=== PATIENT | female | born 1935 | race Caucasian/White ===

== ENCOUNTER 2018-09-14 19:28 | Emergency (ER) | payer MEDICARE, OTHER ==
[~2018-09-14] VITALS: Ht 165.1 cm; Wt 77.1 kg
--- OUTSIDE RECORDS SUMMARY | 2018-09-14 19:31 | XMS REPORT ---
Author [facility] Address Unknown Phone Unavailable Care Team Providers Care Thermal Intelligence Analyst Name Role Phone Unavailable Unavailable Payers Payer Name Policy Type Policy Number Effective Date Expiration Date Problems This patient has no known problems. Allergies, Adverse Reactions, Alerts Allergy Name Allergy Type Status Severity Reaction(s) Onset Date Inactive Date Treating Clinician Comments No Known Allergies DA Active U 2015-08-04 00:00:00 Medications This patient has no known medications. Results Test Description Test Time Test Comments Text Results Atomic Results Result Comments COMPREHENSIVE METABOLIC PANEL 2018-08-08 09:40:00 SODIUM (test code=NA) 134 mmol/L 136-145 POTASSIUM (test code=K) 3.8 mmol/L 3.5-5.1 CHLORIDE (test code=CL) 103.0 mmol/L 98-107 CARBON DIOXIDE (test code=CO2) 21.0 mmol/L 21-32 ANION GAP (test code=GAP) 13.8 10-20 GLUCOSE (test code=GLU) 102 mg/dL 74-106 BLOOD UREA NITROGEN (test code=BUN) 12 mg/dL 7-18 GLOMERULAR FILTRATION RATE (test code=GFR) 60 mL/min >=60 Estimated GFR by using Modified MDRD formula.Chronic kidney disease is defined as either kidney damageor GFR <60 mL/min/1.73 m2 for >3 months. CREATININE (test code=CREAT) 0.90 mg/dL 0.55-1.02 Note change in reference range due to change in reagent. BUN/CREATININE RATIO (test code=BUN/CREA) 13.3 10-20 TOTAL PROTEIN (test code=PROT) 7.5 gram/dL 6.4-8.2 ALBUMIN (test code=ALB) 3.9 g/dL 3.4-5.0 GLOBULIN (test code=GLOB) 3.6 gram/dL 2.7-4.2 ALBUMIN/GLOBULIN RATIO (test code=A/G) 1.1 0.75-1.50 CALCIUM (test code=CA) 9.5 mg/dL 8.5-10.1 BILIRUBIN TOTAL (test code=BILT) 1.30 mg/dL 0.0-1.0 SGOT/AST (test code=AST) 32 IUnit/L 15-37 SGPT/ALT (test code=ALT) 25 IUnit/L 12-78 ALKALINE PHOSPHATASE TOTAL (test code=ALKP) 60 IUnit/L 45-117 Note change in reference range due to change in reagent. [id number] 09:40:00* Test Item Value Reference Range Comments MAGNESIUM (test code=MAG) 1.9 mg/dL 1.8-2.4 COMPREHENSIVE METABOLIC [id number] 09:36:00* Test Item Value Reference Range Comments SODIUM (test code=NA) 134 mmol/L 136-145 POTASSIUM (test code=K) 3.8 mmol/L 3.5-5.1 CHLORIDE (test code=CL) 103.0 mmol/L 98-107 CARBON DIOXIDE (test code=CO2) mmol/L 21-32 ANION GAP (test code=GAP) 10-20 GLUCOSE (test code=GLU) mg/dL 74-106 BLOOD UREA NITROGEN (test code=BUN) mg/dL 7-18 GLOMERULAR FILTRATION RATE (test code=GFR) mL/min >=60 CREATININE (test code=CREAT) mg/dL 0.55-1.02 BUN/CREATININE RATIO (test code=BUN/CREA) 10-20 TOTAL PROTEIN (test code=PROT) gram/dL 6.4-8.2 ALBUMIN (test code=ALB) g/dL 3.4-5.0 GLOBULIN (test code=GLOB) gram/dL 2.7-4.2 ALBUMIN/GLOBULIN RATIO (test code=A/G) 0.75-1.50 CALCIUM (test code=CA) mg/dL 8.5-10.1 BILIRUBIN TOTAL (test code=BILT) mg/dL 0.0-1.0 SGOT/AST (test code=AST) IUnit/L 15-37 SGPT/ALT (test code=ALT) IUnit/L 12-78 ALKALINE PHOSPHATASE TOTAL (test code=ALKP) IUnit/L 45-117 [id number] 09:36:00* Test Item Value Reference Range Comments MAGNESIUM (test code=MAG) mg/dL 1.8-2.4 CBC W/AUTO [id number] 09:09:00* Test Item Value Reference Range Comments WHITE BLOOD CELL (test code=WBC) K/mm3 4.5-12.5 RED BLOOD CELL (test code=RBC) mill/mm3 3.7-5.2 HEMOGLOBIN (test code=HGB) 13.3 gram/dL 11.5-15.5 HEMATOCRIT (test code=HCT) 41.7 % 36.0-46.0 MEAN CELL VOLUME (test code=MCV) fL 80-98 MEAN CELL HGB (test code=MCH) picogram 27.0-33.0 MEAN CELL HGB CONCETRATION (test code=MCHC) gram/dL 33.0-36.0 RED CELL DISTRIBUTION WIDTH (test code=RDW) % 11.6-16.2 RED CELL DISTRIBUTION WIDTH SD (test code=RDW-SD) fL 37.0-51.0 PLATELET COUNT (test code=PLT) K/mm3 150-450 MEAN PLATELET VOLUME (test code=MPV) fL 6.7-11.0 NEUTROPHIL % (test code=NT%) % 39.0-69.0 IMMATURE GRANULOCYTE % (test code=IG%) % 0.0-5.0 LYMPHOCYTE % (test code=LY%) % 25.0-55.0 MONOCYTE % (test code=MO%) % 0.0-10.0 EOSINOPHIL % (test code=EO%) % 0.0-5.0 BASOPHIL % (test code=BA%) % 0.0-1.0 NEUTROPHIL # (test code=NT#) K/mm3 1.8-7.7 LYMPHOCYTE # (test code=LY#) K/mm3 1.0-5.0 MONOCYTE # (test code=MO#) K/mm3 0-0.8 EOSINOPHIL # (test code=EO#) K/mm3 0.0-0.5 BASOPHIL # (test code=BA#) K/mm3 0.0-0.2 CBC W/AUTO [id number] 09:09:00* Test Item Value Reference Range Comments WHITE BLOOD CELL (test code=WBC) 6.9 K/mm3 4.5-12.5 RED BLOOD CELL (test code=RBC) 4.09 mill/mm3 3.7-5.2 HEMOGLOBIN (test code=HGB) 13.3 gram/dL 11.5-15.5 HEMATOCRIT (test code=HCT) 41.7 % 36.0-46.0 MEAN CELL VOLUME (test code=MCV) 102.0 fL 80-98 MEAN CELL HGB (test code=MCH) 32.5 picogram 27.0-33.0 MEAN CELL HGB CONCETRATION (test code=MCHC) 31.9 gram/dL 33.0-36.0 RED CELL DISTRIBUTION WIDTH (test code=RDW) 14.1 % 11.6-16.2 RED CELL DISTRIBUTION WIDTH SD (test code=RDW-SD) 53.1 fL 37.0-51.0 PLATELET COUNT (test code=PLT) 300 K/mm3 150-450 MEAN PLATELET VOLUME (test code=MPV) 9.2 fL 6.7-11.0 NEUTROPHIL % (test code=NT%) 69.6 % 39.0-69.0 IMMATURE GRANULOCYTE % (test code=IG%) 0.4 % 0.0-5.0 LYMPHOCYTE % (test code=LY%) 16.1 % 25.0-55.0 MONOCYTE % (test code=MO%) 11.7 % 0.0-10.0 EOSINOPHIL % (test code=EO%) 1.3 % 0.0-5.0 BASOPHIL % (test code=BA%) 0.9 % 0.0-1.0 NUCLEATED RBC % (test code=NRBC%) 0.0 % 0-0 NEUTROPHIL # (test code=NT#) 4.81 K/mm3 1.8-7.7 IMMATURE GRANULOCYTE # (test code=IG#) 0.03 x10 3/uL 0-0.03 LYMPHOCYTE # (test code=LY#) 1.11 K/mm3 1.0-5.0 MONOCYTE # (test code=MO#) 0.81 K/mm3 0-0.8 EOSINOPHIL # (test code=EO#) 0.09 K/mm3 0.0-0.5 BASOPHIL # (test code=BA#) 0.06 K/mm3 0.0-0.2 NUCLEATED RBC # (test code=NRBC#) 0.00 K/mm3 0.0-0.1 MANUAL DIFF REQUIRED (test code=MDIFF) NO [id number] 08:59:00* Test Item Value Reference Range Comments TROPONIN-I (test code=TROPI) <0.015 ng/mL 0-0.045 COMMENTS TO DETECTIVE PRECINCT: COLLECT 3 HOURS AFTER PREVIOUS [id number] 04:49:00* Test Item Value Reference Range Comments TROPONIN-I (test code=TROPI) <0.015 ng/mL 0-0.045 COMMENTS TO DETECTIVE PRECINCT: COLLECT 3 HOURS AFTER PREVIOUS SAMPLEURINALYSIS [id number] 21:34:00* Test Item Value Reference Range Comments UA COLOR (test code=COLU) LIGHT YELLOW YELLOW UA APPEARANCE (test code=APPU) CLEAR CLEAR UA GLUCOSE DIPSTICK (test code=DGLUU) NEGATIVE mg/dL NEGATIVE UA BILIRUBIN DIPSTICK (test code=BILU) NEGATIVE mg/dL NEGATIVE UA KETONE DIPSTICK (test code=KETU) Negative mg/dL NEGATIVE UA SPECIFIC GRAVITY (test code=SGU) 1.011 1.001-1.035 UA BLOOD DIPSTICK (test code=RENEE) 2+ (Moderate) NEGATIVE UA PH DIPSTICK (test code=SHANTEL) 5.0 5.0-8.0 UA PROTEIN DIPSTICK (test code=PROU) Negative mg/dL NEGATIVE UA UROBILINIOGEN DIPSTICK (test code=URO) NEGATIVE mg/dL NEGATIVE UA NITRITE DIPSTICK (test code=MAAME) NEGATIVE NEGATIVE UA LEUKOCYTE ESTERASE W REFLEX (test code=LEUUR) NEGATIVE NEGATIVE UA WBC (test code=WBCU) 0-5 #/HPF 0-5 UA RBC (test code=RBCU) 0-2 #/HPF 0-5 UA EPITHELIAL CELLS (test code=EPIU) FEW per HPF FEW UA BACTERIA (test code=BACU) FEW #/HPF NONE UA MUCUS (test code=MUCU) FEW #/LPF FEW Urine Source? Clean CatchBASIC METABOLIC [id number] 20:46:00* Test Item Value Reference Range Comments SODIUM (test code=NA) 130 mmol/L 136-145 POTASSIUM (test code=K) 4.5 mmol/L 3.5-5.1 CHLORIDE (test code=CL) 99.0 mmol/L 98-107 CARBON DIOXIDE (test code=CO2) 19.0 mmol/L 21-32 ANION GAP (test code=GAP) 16.5 10-20 GLUCOSE (test code=GLU) 102 mg/dL 74-106 BLOOD UREA NITROGEN (test code=BUN) 29 mg/dL 7-18 GLOMERULAR FILTRATION RATE (test code=GFR) 43 mL/min >=60 Estimated GFR by using Modified MDRD formula.Chronic kidney disease is defined as either kidney damageor GFR <60 mL/min/1.73 m2 for >3 months. CREATININE (test code=CREAT) 1.20 mg/dL 0.55-1.02 Note change in reference range due to change in reagent. BUN/CREATININE RATIO (test code=BUN/CREA) 23.6 10-20 CALCIUM (test code=CA) 9.7 mg/dL 8.5-10.1 HEPATIC FUNCTION [id number] 20:46:00* Test Item Value Reference Range Comments TOTAL PROTEIN (test code=PROT) 7.4 gram/dL 6.4-8.2 ALBUMIN (test code=ALB) 3.7 g/dL 3.4-5.0 GLOBULIN (test code=GLOB) 3.7 gram/dL 2.7-4.2 ALBUMIN/GLOBULIN RATIO (test code=A/G) 1.0 0.75-1.50 BILIRUBIN TOTAL (test code=BILT) 0.80 mg/dL 0.0-1.0 BILIRUBIN DIRECT (test code=BILD) 0.19 mg/dL 0.0-0.20 SGOT/AST (test code=AST) 26 IUnit/L 15-37 SGPT/ALT (test code=ALT) 24 IUnit/L 12-78 ALKALINE PHOSPHATASE TOTAL (test code=ALKP) 59 IUnit/L 45-117 Note change in reference range due to change in reagent. [id number] 20:46:00* Test Item Value Reference Range Comments TROPONIN-I (test code=TROPI) <0.015 ng/mL 0-0.045 BASIC METABOLIC [id number] 20:37:00* Test Item Value Reference Range Comments SODIUM (test code=NA) 130 mmol/L 136-145 POTASSIUM (test code=K) 4.5 mmol/L 3.5-5.1 CHLORIDE (test code=CL) 99.0 mmol/L 98-107 CARBON DIOXIDE (test code=CO2) mmol/L 21-32 ANION GAP (test code=GAP) 10-20 GLUCOSE (test code=GLU) mg/dL 74-106 BLOOD UREA NITROGEN (test code=BUN) mg/dL 7-18 GLOMERULAR FILTRATION RATE (test code=GFR) mL/min >=60 CREATININE (test code=CREAT) mg/dL 0.55-1.02 BUN/CREATININE RATIO (test code=BUN/CREA) 10-20 CALCIUM (test code=CA) mg/dL 8.5-10.1 HEPATIC FUNCTION [id number] 20:37:00* Test Item Value Reference Range Comments TOTAL PROTEIN (test code=PROT) gram/dL 6.4-8.2 ALBUMIN (test code=ALB) g/dL 3.4-5.0 GLOBULIN (test code=GLOB) gram/dL 2.7-4.2 ALBUMIN/GLOBULIN RATIO (test code=A/G) 0.75-1.50 BILIRUBIN TOTAL (test code=BILT) mg/dL 0.0-1.0 BILIRUBIN DIRECT (test code=BILD) mg/dL 0.0-0.20 SGOT/AST (test code=AST) IUnit/L 15-37 SGPT/ALT (test code=ALT) IUnit/L 12-78 ALKALINE PHOSPHATASE TOTAL (test code=ALKP) IUnit/L 45-117 [id number] 20:37:00* Test Item Value Reference Range Comments TROPONIN-I (test code=TROPI) ng/mL 0-0.045 CBC W/AUTO [id number] 20:30:00* Test Item Value Reference Range Comments WHITE BLOOD CELL (test code=WBC) 5.7 K/mm3 4.5-12.5 RED BLOOD CELL (test code=RBC) 4.16 mill/mm3 3.7-5.2 HEMOGLOBIN (test code=HGB) 13.7 gram/dL 11.5-15.5 HEMATOCRIT (test code=HCT) 41.7 % 36.0-46.0 MEAN CELL VOLUME (test code=MCV) 100.2 fL 80-98 MEAN CELL HGB (test code=MCH) 32.9 picogram 27.0-33.0 MEAN CELL HGB CONCETRATION (test code=MCHC) 32.9 gram/dL 33.0-36.0 RED CELL DISTRIBUTION WIDTH (test code=RDW) 13.8 % 11.6-16.2 RED CELL DISTRIBUTION WIDTH SD (test code=RDW-SD) 51.5 fL 37.0-51.0 PLATELET COUNT (test code=PLT) 307 K/mm3 150-450 MEAN PLATELET VOLUME (test code=MPV) 8.8 fL 6.7-11.0 NEUTROPHIL % (test code=NT%) 65.1 % 39.0-69.0 IMMATURE GRANULOCYTE % (test code=IG%) 0.9 % 0.0-5.0 LYMPHOCYTE % (test code=LY%) 18.2 % 25.0-55.0 MONOCYTE % (test code=MO%) 12.8 % 0.0-10.0 EOSINOPHIL % (test code=EO%) 1.9 % 0.0-5.0 BASOPHIL % (test code=BA%) 1.1 % 0.0-1.0 NUCLEATED RBC % (test code=NRBC%) 0.0 % 0-0 NEUTROPHIL # (test code=NT#) 3.71 K/mm3 1.8-7.7 IMMATURE GRANULOCYTE # (test code=IG#) 0.05 x10 3/uL 0-0.03 LYMPHOCYTE # (test code=LY#) 1.04 K/mm3 1.0-5.0 MONOCYTE # (test code=MO#) 0.73 K/mm3 0-0.8 EOSINOPHIL # (test code=EO#) 0.11 K/mm3 0.0-0.5 BASOPHIL # (test code=BA#) 0.06 K/mm3 0.0-0.2 NUCLEATED RBC # (test code=NRBC#) 0.00 K/mm3 0.0-0.1 MANUAL DIFF REQUIRED (test code=MDIFF) NO - CT HEAD/BRAIN W/O [id number] 20:30:00 Name: CLARISA CHAIDEZ [facility] : 1935 Age/S: 83 / F Miriam Tabor Unit #: [id number] Loc: [place] [address] Phys: Yonny Hale MD Acct: [id number] Dis Date: Status: REG ER PHONE #: [phone] Exam Date: 08/06/20182025 FAX #: [phone] Reason: Altered Mental Status EXAMS: CPT CODE: [id number] CT HEAD/BRAIN W/O CONT 70068 REASON FOR EXAM: Altered Mental Status EXAM ORDER DATE: 08/06/2018 7:44 PM Ordering MKeara: Yonny Hale MD PROCEDURE: - CT HEAD/BRAIN W/O CONT COMPARISON: FINDINGS: CT images of the brain were obtained without IV contrast. Dose modulation, iterative reconstruction, and/or weight based adjustment of the MA/KV was utilized to reduce the radiation dose to as low as reasonably achievable. The brain parenchyma is within normal limits. The adair-white matter delineation is unremarkable. The ventricles, cisterns, and sulci are minimally prominent. There is no evidence of hemorrhage, mass, mass effect. There is no evidence of acute or old infarct. The calvarium is intact. IMPRESSION: Unremarkable brain. at 2030 Reported and signed by: Mason New M.D. CC: Yonny Hale MD; Burke Grover MD Technologist:Eligio Spears, RT(R)(CT); September CTDI: DLP: Trnscb Date/Time: 08/06/2018 (2029) Forrest Orig Print D/T: S: 08/06/2018 (2033) CTDI: DLP: PAGE 1 Signed Report CBC W/AUTO [id number] 20:27:00 * Test Item Value Reference Range Comments WHITE BLOOD CELL (test code=WBC) K/mm3 4.5-12.5 RED BLOOD CELL (test code=RBC) mill/mm3 3.7-5.2 HEMOGLOBIN (test code=HGB) 13.7 gram/dL 11.5-15.5 HEMATOCRIT (test code=HCT) 41.7 % 36.0-46.0 MEAN CELL VOLUME (test code=MCV) fL 80-98 MEAN CELL HGB (test code=MCH) picogram 27.0-33.0 MEAN CELL HGB CONCETRATION (test code=MCHC) gram/dL 33.0-36.0 RED CELL DISTRIBUTION WIDTH (test code=RDW) % 11.6-16.2 RED CELL DISTRIBUTION WIDTH SD (test code=RDW-SD) fL 37.0-51.0 PLATELET COUNT (test code=PLT) K/mm3 150-450 MEAN PLATELET VOLUME (test code=MPV) fL 6.7-11.0 NEUTROPHIL % (test code=NT%) % 39.0-69.0 IMMATURE GRANULOCYTE % (test code=IG%) % 0.0-5.0 LYMPHOCYTE % (test code=LY%) % 25.0-55.0 MONOCYTE % (test code=MO%) % 0.0-10.0 EOSINOPHIL % (test code=EO%) % 0.0-5.0 BASOPHIL % (test code=BA%) % 0.0-1.0 NEUTROPHIL # (test code=NT#) K/mm3 1.8-7.7 LYMPHOCYTE # (test code=LY#) K/mm3 1.0-5.0 MONOCYTE # (test code=MO#) K/mm3 0-0.8 EOSINOPHIL # (test code=EO#) K/mm3 0.0-0.5 BASOPHIL # (test code=BA#) K/mm3 0.0-0.2 - XR CHEST 1 [id number] 20:14:00 FAX: Yonny Hale MD [phone] [place]: B St: [facility] FAX: Burke Gallardo [phone] Name: CLARISA CHAIDEZ [facility] : 1935 Age/S: 83/F Miriam Tabor Unit #: [id number] Loc: [place] [address] Phys: Yonny Hale MD Acct: [id number] Dis Date: Status: REG ER PHONE #: [phone] Exam Date: 08/06/2018 1950 FAX #: [phone] Reason: Altered Mental Status EXAMS: CPT CODE: [id number] XR CHEST 1 V [id number] REASON FOR EXAM: Altered Mental Status EXAM ORDER DATE: 08/06/2018 7:44 PM Ordering Eduarda: Yonny Hale MD PROCEDURE: - XR CHEST 1 V COMPARISON: FINDINGS: Portable AP frontal view of the chest obtained at 7:49 PM shows clear lungs without evidence of consolidation. There is no evidence of effusion. The heart size is minimally enlarged. Pulmonary vasculatures are unremarkable. IMPRESSION: No active disease. at 2014 Reported and signed by: Mason New M.D. CC: Yonny Hale MD; Burke Grover MD Technologist: BASILIO THOMAS(R) Trnscrd Date/Time/By: 08/06/2018 (2013) : By: KvngL Orig Print D/T: S: 08/06/2018 (2016) PAGE 1 Signed Report
[2018-09-14 20:49] LABS: BASOPHILS % 0.9 % (0.0-1.0); EOSINOPHILS # (AUTO) 0.2 (0.0-0.4); EOSINOPHILS % 5.5 % (0.0-6.0); HEMATOCRIT 37.1 % (34.2-44.1); HEMOGLOBIN 12.2 g/dL (12.0-16.0); LYMPHOCYTES # (AUTO) 0.8 (1.0-3.2); LYMPHOCYTES % 18.3 % (18.0-39.1); MEAN CORPUSCULAR HGB CONC 32.9 g/dL (31-35); MEAN CORPUSCULAR VOLUME 100.3 fL (81-99); MONOCYTES # (AUTO) 0.6 (0.2-0.8); MONOCYTES % 13.9 % (4.4-11.3); NEUTROPHILS # (AUTO) 2.7 (2.1-6.9); NEUTROPHILS % 61.2 % (38.7-80.0); PLATELET COUNT 277 x10e3/uL (140-360); RED CELL DISTRIBUTION WIDTH 13.4 % (11.7-14.4)
[2018-09-14] MEDS ORDERED: ULTRAM 50MG50 MG PO (21:00)
[2018-09-14] MEDS ORDERED: KLOR-CON M2020 MEQ PO (21:00)
[2018-09-14] MEDS ORDERED: NORTRIPTYLINE H10 MG PO (21:00)
[2018-09-14] MEDS ORDERED: METOPROLOL SUCC50 MG PO (21:00)
[2018-09-14] MEDS ORDERED: DICLOFENAC SODI75 MG PO (21:00)
[2018-09-14] MEDS ORDERED: MAG-OXIDE400 MG PO (21:00)
[2018-09-14] MEDS ORDERED: SPIRONOLACTONE100 MG PO (21:00)
[2018-09-14] MEDS ORDERED: HYDROCODON-ACE1 EAC9 PO (21:00)
[2018-09-14 21:03] LABS: ALBUMIN 3.5 g/dL (3.5-5.0); ANION GAP 14.9 mmol/L (8-16); CREATININE, SERUM 1.45 mg/dL (0.57-1.11); MAGNESIUM 2.4 MG/DL (1.3-2.1); POTASSIUM 5.9 mmol/L (3.5-5.1)
[2018-09-14] MEDS ORDERED: DEXTROSE 50% SYRINGE 50 ML IV STA (21:17)
[2018-09-14] MEDS ORDERED: INSULIN REGULAR, HUMAN 100 UNIT/1 ML 3ML VIAL IV ONE (21:30)
[2018-09-14] MEDS ORDERED: SOD POLYSTYRENE SULFONATE SUSP 15 GM/60 ML BTL PO ONE (21:30)
[2018-09-14] MEDS ORDERED: CALCIUM GLUCONATE 10% INJ 4.65 MEQ in SODIUM CHLORIDE 0.9% 50ML 50 ML IV ONE (21:30)
[2018-09-14] MEDS ORDERED: SODIUM CHLORIDE 0.9% 1000ML 1,000 ML IV SCH (21:30)
[2018-09-15 00:39] LABS: ANION GAP 13.4 mmol/L (8-16); CALCIUM 9.8 mg/dL (8.4-10.2)
[2018-09-15 01:01] LABS: POTASSIUM 4.4 mmol/L (3.5-5.1)
[2018-09-15 01:32] LABS: CREATININE, SERUM 1.22 mg/dL (0.57-1.11)
[2018-09-15 03:06] VITALS: BP 129/68
== END 2018-09-15 01:30 | disposition home or self-care (01) ==
LOC: ER 19:28
DX: E87.5 Hyperkalemia (principal)
CPT/HCPCS: 36415; 80048; 80053; 83735; 85025; 93005; 99284; J0610; J1817; J7030; J7799

== ENCOUNTER 2019-07-17 06:31 | Inpatient (IN) | payer MEDICARE, OTHER ==
[~2019-07-17] VITALS: Ht 165.1 cm; Wt 89.9 kg
[~2019-07-17 06:31] MED LIST: DICLOFENAC SODI75 MG PO; HYDROCODON-ACE1 EAC9 PO; KLOR-CON M2020 MEQ PO; MAG-OXIDE400 MG PO; METOPROLOL SUCC50 MG PO; NORTRIPTYLINE H10 MG PO; SPIRONOLACTONE100 MG PO; ULTRAM 50MG50 MG PO
[2019-07-17] MEDS ORDERED: SODIUM CHLORIDE 0.9% 1000ML 1,000 ML IV STA (06:43)
[2019-07-17] MEDS ORDERED: DIATRIZOATE MEGL/DIATRIZOA SOD 30 ML BTL PO ONE (07:00)
[2019-07-17 07:59] LABS: BASOPHILS % 0.3 % (0.0-1.0); EOSINOPHILS % 0.1 % (0.0-6.0); HEMATOCRIT 40.6 % (34.2-44.1); HEMOGLOBIN 13.8 g/dL (12.0-16.0); LYMPHOCYTES # (AUTO) 0.9 (1.0-3.2); LYMPHOCYTES % 6.8 % (18.0-39.1); MEAN CORPUSCULAR HEMOGLOBIN 32.2 pg (28-32); MEAN CORPUSCULAR VOLUME 94.9 fL (81-99); MONOCYTES # (AUTO) 1.2 (0.2-0.8); MONOCYTES % 9.9 % (4.4-11.3); NEUTROPHILS # (AUTO) 10.3 (2.1-6.9); NEUTROPHILS % 82.1 % (38.7-80.0); PLATELET COUNT 227 x10e3/uL (140-360); RED BLOOD COUNT 4.28 x10e6/uL (3.6-5.1); RED CELL DISTRIBUTION WIDTH 13.2 % (11.7-14.4)
[2019-07-17 08:20] LABS: ALANINE AMINOTRANSFERASE 8 IU/L (0-55); ALBUMIN 2.9 g/dL (3.5-5.0); ALBUMIN/GLOBULIN RATIO 0.7 (0.8-2.0); ALKALINE PHOSPHATASE 96 IU/L (40-150); ANION GAP 17.9 mmol/L (8-16); BLOOD UREA NITROGEN 9 mg/dL (7-26); BUN/CREATININE RATIO 12 (6-25); CALCIUM 8.7 mg/dL (8.4-10.2); CARBON DIOXIDE 24 mmol/L (22-29); CHLORIDE 90 mmol/L (98-107); CREATINE KINASE 34 IU/L (29-168); CREATININE, SERUM 0.74 mg/dL (0.57-1.11); EST GLOMERULAR FILTRATION RATE > 60 ML/MIN (60-); GLUCOSE 94 mg/dL (74-118); LIPASE 62 U/L (8-78); SODIUM 129 mmol/L (136-145)
[2019-07-17 08:29] LABS: POTASSIUM 2.9 mmol/L (3.5-5.1)
[2019-07-17] MEDS ORDERED: POTASSIUM CHLORIDE 10MEQ/100ML 100 ML IV ONE (09:00)
[2019-07-17] MEDS: POTASSIUM CHLORIDE 10MEQ EA PO SCH (09:50)
--- NOTE | 2019-07-17 10:15 | Diagnostic Imaging Report ---
EXAMINATION: CT of the abdomen and pelvis with contrast. TECHNIQUE: Spiral CT images of the abdomen and pelvis were performed from the lung bases to the lesser trochanters after the intravenous administration of 100 cc of Isovue 370. Coronal and sagittal reformatted images were obtained. COMPARISON: None. CLINICAL HISTORY:Diarrhea x2 weeks, abdominal distention DISCUSSION: ABDOMEN/PELVIS: LOWER THORAX:Subsegmental atelectasis in the dependent lower lobes. HEPATOBILIARY: No focal hepatic lesions. Trace intrahepatic biliary ductal dilatation status post cholecystectomy. Common bile duct is mildly prominent measuring 9 mm in diameter. SPLEEN: Calcified granulomata. PANCREAS: No focal masses or ductal dilatation. ADRENALS: No adrenal nodules. KIDNEYS/URETERS: No hydronephrosis, calculi, or solid or cystic mass lesions. PELVIC ORGANS/BLADDER: Urinary bladder is unremarkable. Uterus is neutral in position and appears normal for age. No adnexal mass. PERITONEUM/RETROPERITONEUM: No ascites or pneumoperitoneum. LYMPH NODES: No pelvic sidewall, retroperitoneal, or mesenteric lymphadenopathy. Calcified right lower quadrant mesenteric lymph nodes, sequela of prior infectious or inflammatory process. VESSELS: Atherosclerotic calcification of the abdominal aorta, branch vessels, and iliac arterial systems without aneurysmal dilatation. Portal vein, splenic vein, and central superior mesenteric vein are patent. GI TRACT: The large bowel shows no evidence of distention or wall thickening. The appendix is not definitively identified and may have been removed. Small hiatal hernia. No small bowel dilatation to suggest obstruction. BONES AND SOFT TISSUE: Diffuse osteopenia. Vertebroplasty cement within the T11 vertebral body. No osseous destructive lesions. No focal soft tissue abnormalities. IMPRESSION: No acute intra-abdominal or pelvic CT abnormalities. Trace intrahepatic and extrahepatic biliary ductal dilatation, likely reservoir effect status post cholecystectomy. Atherosclerotic vascular disease. Signed by: Dr. Thang Cardoza M.D. on 07/17/2019 10:12 AM
--- NOTE | 2019-07-17 11:06 | Diagnostic Imaging Report ---
Examination: CT head without contrast Clinical Indication: Severe headache. Technique: Transaxial noncontrast images from the skull base through the vertex were obtained. Sagittal and coronal reformatted images were done. Dose modulation, iterative reconstruction, and/or weight based adjustment of the mA/kV was utilized to reduce the radiation dose to as low as reasonably achievable. Comparison: None. Findings: Scalp: No abnormalities. Bones: Intact. No fractures. No blastic or lytic lesions. Brain sulci: Mild volume loss for patient's age. Ventricles: No hydrocephalus. Extra-axial space: No abnormalities. Parenchyma: There are confluent areas of low-attenuation within subcortical and periventricular white matter, nonspecific, but could represent microvascular ischemic disease. No masses, hemorrhage, or acute or chronic cortical based vascular insults. Suprasellar region: No abnormalities. Craniocervical junction: The foramen magnum is patent. No Chiari one malformation. Incidental findings: Atherosclerotic calcification of the cavernous and supraclinoid internal carotid and V4 segments of the bilateral vertebral arteries. Impression: 1. No acute intracranial finding. 2. Chronic microvascular ischemic change and volume loss. Signed by: Dr. Marie Phillips M.D. on 07/17/2019 11:03 AM
--- NOTE | 2019-07-17 11:21 | Diagnostic Imaging Report ---
Examination: CT CERVICAL SPINE WO CONTRAST HISTORY:Neck pain COMPARISON:None. TECHNIQUE: Multidetector helical axial images were obtained without contrast from the foramen magnum to T1. Coronal and sagittal reformatted images were done. Bone and soft tissue windows were evaluated. Dose modulation, iterative reconstruction, and/or weight based adjustment of the mA/kV was utilized to reduce the radiation dose to as low as reasonably achievable. FINDINGS: Alignment:Normal alignment and lordosis. Vertebrae: Normal height and density. No acute fracture, infection or neoplasm. Disc space heights: Severely narrowed from C2 to through C7. Caliber of spinal canal: Developmentally normal. Posterior fossa and craniocervical junction: Foramen magnum patent. No Chiari 1 malformation. Soft tissues: Atherosclerotic calcification of the bilateral carotid bifurcations and aortic arch. Degenerative changes: Disc osteophyte complexes from C3-C4 through C6-C7 without canal stenosis. Grade I anterolisthesis of C2 on C3 and C3 on C4. Mild retrolisthesis of C6 on C7. Retrodental partially calcified soft tissue without erosive change of the underlying dense which could be related to CPPD or rheumatoid arthritis. Bilateral facet arthropathy from C2 through C6. Visualized lung apices: No abnormalities. IMPRESSION: 1. No acute abnormalities, specifically, no acute fracture. 2. Degenerative changes as above. Grade I anterolisthesis of C2 on C3 and C3 on C4. Mild retrolisthesis of C6 on C7. Signed by: Dr. Marie Phillips M.D. on 07/17/2019 11:19 AM
[2019-07-17] MEDS ORDERED: ONDANSETRON HCL INJ 2MG/ML 2ML 2 MG/ML VIAL IV PRN (12:15)
[2019-07-17] MEDS ORDERED: IOPAMIDOL 370 MG/ML 200 ML INFUS..BTL INJ ONE (12:58)
[2019-07-17] MEDS ORDERED: SODIUM CHLORIDE 0.9% 50ML 50 ML ONE (12:58)
[2019-07-17] MEDS: CEFTRIAXONE SOD 1 GM/NS 50 ML 50 ML IV SCH ×2 (13:08→20:51)
[2019-07-17] MEDS: SODIUM CHLORIDE 0.9% 1000ML 1,000 ML IV SCH (13:08)
[2019-07-17] MEDS ORDERED: POTASSIUM CHLORIDE 20MEQ/100ML 100 ML IV ONE (13:45)
[2019-07-17 15:13] LABS: BILIRUBIN,URINE NEGATIVE (NEGATIVE); CLARITY,URINE SL CLOUDY (CLEAR); COLOR,URINE YELLOW (YELLOW); KETONES,URINE 2+ (NEGATIVE); LEUKOCYTE ESTERASE ,URINE NEGATIVE (NEGATIVE); NITRITE,URINE NEGATIVE (NEGATIVE); PROTEIN,URINE DIPSTICK 1+ (NEGATIVE); URINE UROBILINOGEN 0.2 mg/dL (0.2 - 1)
[2019-07-17 15:28] LABS: BACTERIA,URINE FEW /HPF; EPITHELIAL CELLS,URINE FEW /LPF; WBC,URINE (MAN) 0-5 /HPF (0-5)
[2019-07-17 15:48] VITALS: BP 168/96
[2019-07-17] MEDS: TRAMADOL HCL 50 MG TAB PO PRN (15:53)
[2019-07-17 16:00] VITALS: BP 168/96
[2019-07-17 16:08] VITALS: BP 168/96
[2019-07-17 17:41] LABS: CREATINE KINASE MB 0.8 ng/mL (0-5.0)
[2019-07-17 20:00] VITALS: BP 148/82
--- NOTE | 2019-07-17 20:11 | NUR ---
Paged Dr Aby Shirley regarding patient elevated HR and headache. Spoke with [facility]. Awaiting call back.
[2019-07-17 20:20] VITALS: BP 148/82
--- NOTE | 2019-07-17 20:31 | NUR ---
Spoke with Dr Aby Shirley regarding patient. HR 115 to 130'sbut not sustaining. Patient also c/o headache 02/22. Per report patient is heavy drinker, patient report drinking dale at home. New orders for tylenol 500 mg po Q 6 hrs PRN pain and start toprol xl tonight.
[2019-07-17] MEDS: ACETAMINOPHEN 325 MG TAB PO PRN (20:51)
[2019-07-17] MEDS ORDERED: METOPROLOL SUCCINATE 50 MG TAB XL PO SCH (21:00)
[2019-07-18] VITALS (8 sets, daily range): BP systolic 106–130; BP diastolic 57–89
[2019-07-18] MEDS ORDERED: BISACODYL 5 MG TAB EC PO ONE ×3 (00:30→01:00)
[2019-07-18] MEDS: SODIUM CHLORIDE 0.9% 1000ML 1,000 ML IV SCH ×2 (00:47→21:11)
[2019-07-18] MEDS: TRAMADOL HCL 50 MG TAB PO PRN ×2 (01:56→21:24)
[2019-07-18 02:22] LABS: ANION GAP 16.3 mmol/L (8-16); BLOOD UREA NITROGEN 7 mg/dL (7-26); BUN/CREATININE RATIO 11 (6-25); CALCIUM 8.8 mg/dL (8.4-10.2); CARBON DIOXIDE 24 mmol/L (22-29); CHLORIDE 95 mmol/L (98-107); CREATININE, SERUM 0.66 mg/dL (0.57-1.11); EST GLOMERULAR FILTRATION RATE > 60 ML/MIN (60-); GLUCOSE 90 mg/dL (74-118); SODIUM 133 mmol/L (136-145)
[2019-07-18 02:24] LABS: POTASSIUM 2.3 mmol/L (3.5-5.1)
--- NOTE | 2019-07-18 02:38 | NUR ---
Page out to Dr Aby Shirley, spoke with Carla with answering service. Awaiting call back.
[2019-07-18 02:41] LABS: CREATINE KINASE MB 0.9 ng/mL (0-5.0)
[2019-07-18] MEDS ORDERED: POTASSIUM CHLORIDE 20MEQ/100ML 100 ML IV ONE ×2 (02:45→05:00)
--- NOTE | 2019-07-18 02:45 | NUR ---
Return call from Dr Aby Shirley. Reported lab alert potassium 2.3. New order for kcl 20 mEq IVPB over 2 hrs x2 doses, recheck BMP and magnesium in am 0700.
[2019-07-18] MEDS ORDERED: CITRATE OF MAGNESIA 300ML BOTTLE PO ONE ×2 (05:00→06:00)
--- NOTE | 2019-07-18 07:01 | NUR ---
BEDSIDE SHIFT REPORT RECEIVED FROM VULCANIZED FIBER UNIT OPERATOR RN, PT RESTING IN BED. NO SIGNS OF DISTRESS. NO COMPLAINTS AT THIS TIME.
[2019-07-18 08:06] LABS: BASOPHILS # (AUTO) 0.1 (0.0-0.1); BASOPHILS % 0.4 % (0.0-1.0); HEMATOCRIT 43.5 % (34.2-44.1); HEMOGLOBIN 14.7 g/dL (12.0-16.0); LYMPHOCYTES # (AUTO) 0.6 (1.0-3.2); LYMPHOCYTES % 2.6 % (18.0-39.1); MEAN CORPUSCULAR HEMOGLOBIN 32.2 pg (28-32); MEAN CORPUSCULAR HGB CONC 33.8 g/dL (31-35); MEAN CORPUSCULAR VOLUME 95.2 fL (81-99); MONOCYTES # (AUTO) 1.3 (0.2-0.8); MONOCYTES % 5.9 % (4.4-11.3); NEUTROPHILS # (AUTO) 20.3 (2.1-6.9); NEUTROPHILS % 90.5 % (38.7-80.0); PLATELET COUNT 279 x10e3/uL (140-360); RED BLOOD COUNT 4.57 x10e6/uL (3.6-5.1); RED CELL DISTRIBUTION WIDTH 13.1 % (11.7-14.4)
[2019-07-18 08:29] LABS: ALANINE AMINOTRANSFERASE 12 IU/L (0-55); ALBUMIN 2.8 g/dL (3.5-5.0); ALBUMIN/GLOBULIN RATIO 0.7 (0.8-2.0); ALKALINE PHOSPHATASE 99 IU/L (40-150); ANION GAP 13.7 mmol/L (8-16); BLOOD UREA NITROGEN 7 mg/dL (7-26); BUN/CREATININE RATIO 11 (6-25); CALCIUM 9.2 mg/dL (8.4-10.2); CARBON DIOXIDE 19 mmol/L (22-29); CHLORIDE 101 mmol/L (98-107); CREATININE, SERUM 0.66 mg/dL (0.57-1.11); EST GLOMERULAR FILTRATION RATE > 60 ML/MIN (60-); GLUCOSE 102 mg/dL (74-118); SODIUM 131 mmol/L (136-145)
[2019-07-18 08:42] LABS: POTASSIUM 2.7 mmol/L (3.5-5.1)
[2019-07-18 08:51] LABS: CREATINE KINASE MB 1.8 ng/mL (0-5.0)
[2019-07-18] MEDS: CEFTRIAXONE SOD 1 GM/NS 50 ML 50 ML IV SCH (08:58)
[2019-07-18] MEDS: POTASSIUM CHLORIDE 10MEQ EA PO SCH (08:58)
[2019-07-18] MEDS: NORTRIPTYLINE HCL 10 MG CAP PO SCH (08:59)
[2019-07-18] MEDS ORDERED: METOPROLOL SUCCINATE 50 MG TAB XL PO SCH (09:00)
[2019-07-18] MEDS ORDERED: MAGNESIUM OXIDE 400 MG TAB PO SCH (09:00)
[2019-07-18] MEDS ORDERED: POTASSIUM CHLORIDE 20 MEQ TAB CR PO STA (09:16)
[2019-07-18] MEDS ORDERED: POTASSIUM CHLORIDE 20MEQ/100ML 200 ML IV ONE (09:30)
[2019-07-18 11:18] LABS: NEUTROPHILS % (MANUAL) 100 % (40-74)
[2019-07-18] MEDS ORDERED: POTASSIUM CHLORIDE 20MEQ/100ML 300 ML IV ONE (11:45)
[2019-07-18] MEDS ORDERED: POTASSIUM CHLORIDE 20 MEQ TAB CR PO ONE (11:59)
[2019-07-18] MEDS ORDERED: AMILORIDE HCL 5 MG TAB PO ONE (12:15)
[2019-07-18] MEDS ORDERED: LEVOFLOXACIN 500MG/D5W 100ML 100 ML IV SCH (13:30)
[2019-07-18] MEDS ORDERED: ONDANSETRON HCL INJ 2MG/ML 2ML 2 MG/ML VIAL IV PRN (13:30)
[2019-07-18] MEDS ORDERED: METRONIDAZOLE 500MG/NS 100ML 100 ML IV SCH (14:00)
--- NOTE | 2019-07-18 14:25 | Diagnostic Imaging Report ---
EXAMINATION: CHEST SINGLE (PORTABLE) INDICATION: Pneumonia COMPARISON: None FINDINGS: LINES/TUBES:None LUNGS:The lungs are moderately inflated. No focal consolidation or pulmonary edema. Right midlung calcified granuloma. Mild bibasilar subsegmental atelectasis. PLEURA:No pleural effusion or pneumothorax. MEDIASTINUM:The cardiomediastinal silhouette appears normal in size and shape. Atherosclerotic calcifications of the thoracic aorta. BONES/SOFT TISSUES:No acute osseous injury. Severe right glenohumeral joint degenerative changes with [id number] contact. ABDOMEN:No free air under the diaphragm. IMPRESSION: No focal pneumonia or pulmonary edema. Bibasilar subsegmental atelectasis. Severe right glenohumeral joint degenerative changes. Signed by: Cristhian Anderson MD on 07/18/2019 2:21 PM
--- NOTE | 2019-07-18 15:04 | NUR ---
PT C/O WORSENING ABDOMINAL DISCOMFORT; PAGED DR. FLOREZ FOR ORDERS. LEFT MESSAGE. AWAITING CALLBACK.
--- NOTE | 2019-07-18 15:38 | NUR ---
Nutrition Screen Note RD Recommendation for Physician: - When feasible, ADAT to goal of GI Soft Plan of Care: RD following, monitoring for tolerance and adequacy Nutrition reason for involvement: Nutrition risk trigger Primary Diagnose(s): diarrhea, hypokalemia, hyponatremia PMH: HTN, arthritis, cholecystectomy Ht: 65 in Wt: 185.5 lb BMI: 30.9 kg/m2 IBW: [address] Assessment: (07/17) 84 YOF admitted for diarrhea, seen today per MST screen. Pt reports decreased appetite x 2 days UI ARCHITECT and diarrhea x 1 week UI ARCHITECT. Clear liquid diet initiated for lunch, tray at bedside and tolerance pending- assisted pt with set up and encouraged intake. Noted pt with 7 BMs today, continues with diarrhea/melena and C diff cultures pending. No wt loss noted, pt reports UBW of 170#. Skin intact. All questions and concerns addressed at time of visit. Chart reviewed. Labs and meds reviewed. Will continue to monitor. Current Diet: Clear liquids Malnutrition Evaluation (07/18/19) The patient does not meet criteria for a specified degree of malnutrition at this time. Will re-evaluate at follow-up as appropriate. Energy intake: Mild- decreased po intake x 3 days Weight loss: None. UBW of 170# per pt. Fat loss: none, ample skinfold thickness Muscle loss: none, shoulder round Supporting Evidence: Fluid accumulation: none observed Functional Status: not assessed Diet Education Needs Assessment: Diet education not indicated, on temporary/transitional diet. Diet tolerance: tolerance of CL pending Nutrition Care Level: Low Signed: Edwige Haque RD, LD, [facility]
[2019-07-18] MEDS: ACETAMINOPHEN 325 MG TAB PO PRN (16:41)
[2019-07-18] MEDS: METOPROLOL TARTRATE 25 MG TAB PO SCH (16:42)
[2019-07-18 17:01] LABS: MAGNESIUM 2.5 MG/DL (1.3-2.1); POTASSIUM 3.7 mmol/L (3.5-5.1)
[2019-07-18] MEDS ORDERED: HYDROMORPHONE 1MG/1ML INJ IV STA (17:11)
[2019-07-18] MEDS: VANCOMYCIN 250MG/5ML ORAL SOLN PO SCH (17:28)
[2019-07-19] VITALS (8 sets, daily range): BP systolic 123–148; BP diastolic 73–85
--- NOTE | 2019-07-19 00:45 | Consultation ---
DATE OF CONSULTATION: REASON FOR CONSULTATION: Severe electrolyte imbalance. HISTORY OF PRESENT ILLNESS: Ms. Mckeon is a delightful 84-year-old female, presented with 5-day history of diarrhea with lower abdominal discomfort. She was given some Tylenol earlier, but that has made no effect. She had about five or six bowel movements yesterday twice today. Stool for C diff has been ordered. She has had episodes of diarrhea and abdominal pain in the past and has been admitted in the past. She has been on Aldactone at home as well as Pamelor for a long time. History of prior cholecystectomy, urinary tract infections. There is no prior history of any kidney insufficiency or kidney stone disease. She has had prior infectious colitis was started on Flagyl. This was back in 2007. Currently lying supine, in no apparent distress. ALLERGIES: NO APPARENT DRUG ALLERGIES. SOCIAL HISTORY: Does not smoke or drink. FAMILY HISTORY: Significant for hypertension. CURRENT LABS: Show white count 72020, hemoglobin 14.7, platelets 279. Sodium 131, potassium 3.7, bicarbonate 19, creatinine 0.66, magnesium 2.1. Repeat 2.4. LFTs noted. CK is 55. CURRENT MEDICATIONS: The patient received potassium supplementation besides that she was on ceftriaxone, which has been stopped. I am either to stop her Levaquin, going to stop her Flagyl. I strongly suspect she has C diff. I have encouraged the nurse to send stool for C diff immediately. In the meantime, I am going to start her on oral vancomycin. She is on Levaquin. She is on Tylenol p.r.n. She had Dulcolax one time dose. Apparently, she is on potassium chloride 10 mEq daily. She is on tramadol p.r.n., Pamelor 10 mg daily, metoprolol 25 mg p.o. b.i.d. She has been started on Flagyl at 5 mg IV q.8h. PHYSICAL EXAMINATION: VITAL SIGNS: Awake, alert, lying supine, in no apparent distress with a blood pressure off 128/89, pulse rate 124, afebrile, oxygen saturation 94% on room air. HEAD AND NECK: Cornea clear. Oral mucosa moist. LUNGS: Relatively clear. HEART: S1, S2 audible. ABDOMEN: Otherwise soft, mildly tender lower abdomen. No rebound LOWER EXTREMITY: Examination shows no edema. IMPRESSION: Distal RTA, normal anion gap metabolic acidosis most likely due to diarrhea. Diarrhea with elevated white count, most likely C diff multiple and otherwise she has had infectious diarrhea in the past. Hypokalemic, mildly hyponatremic, multifactorial. Magnesium within normal range. I will aggressively replace potassium both orally and the IV. We will give her half-a-mg Dilaudid right now because of pain. I strongly encouraged nurse to send stool for C. diff. I will discontinue Levaquin. Discontinue Flagyl. Start her on vancomycin p.o. 250 mg q.8h as well as give a one time dose of amiloride to help correct her hypokalemia faster. Please see orders. MD JORGE L Benitez/ORIANA /[id number]
[2019-07-19] MEDS: VANCOMYCIN 250MG/5ML ORAL SOLN PO SCH ×3 (02:25→17:42)
[2019-07-19] MEDS: ACETAMINOPHEN 325 MG TAB PO PRN ×3 (02:36→18:16)
[2019-07-19] MEDS: SODIUM CHLORIDE 0.9% 1000ML 1,000 ML IV SCH (03:02)
[2019-07-19 05:13] LABS: BASOPHILS # (AUTO) 0.1 (0.0-0.1); BASOPHILS % 0.4 % (0.0-1.0); EOSINOPHILS # (AUTO) 0.2 (0.0-0.4); EOSINOPHILS % 1.3 % (0.0-6.0); HEMATOCRIT 39.7 % (34.2-44.1); LYMPHOCYTES # (AUTO) 0.8 (1.0-3.2); LYMPHOCYTES % 4.5 % (18.0-39.1); MEAN CORPUSCULAR HEMOGLOBIN 31.5 pg (28-32); MEAN CORPUSCULAR HGB CONC 32.7 g/dL (31-35); MEAN CORPUSCULAR VOLUME 96.1 fL (81-99); MONOCYTES # (AUTO) 1.1 (0.2-0.8); MONOCYTES % 6.3 % (4.4-11.3); NEUTROPHILS # (AUTO) 14.8 (2.1-6.9); NEUTROPHILS % 86.8 % (38.7-80.0); PLATELET COUNT 292 x10e3/uL (140-360); RED BLOOD COUNT 4.13 x10e6/uL (3.6-5.1); RED CELL DISTRIBUTION WIDTH 13.3 % (11.7-14.4)
[2019-07-19 05:37] LABS: ALANINE AMINOTRANSFERASE 11 IU/L (0-55); ALBUMIN 2.4 g/dL (3.5-5.0); ALBUMIN/GLOBULIN RATIO 0.6 (0.8-2.0); ALKALINE PHOSPHATASE 90 IU/L (40-150); ANION GAP 11.7 mmol/L (8-16); BLOOD UREA NITROGEN 9 mg/dL (7-26); BUN/CREATININE RATIO 14 (6-25); CALCIUM 9.3 mg/dL (8.4-10.2); CARBON DIOXIDE 15 mmol/L (22-29); CHLORIDE 107 mmol/L (98-107); CREATININE, SERUM 0.66 mg/dL (0.57-1.11); EST GLOMERULAR FILTRATION RATE > 60 ML/MIN (60-); GLUCOSE 91 mg/dL (74-118); MAGNESIUM 2.2 MG/DL (1.3-2.1); POTASSIUM 3.7 mmol/L (3.5-5.1); SODIUM 130 mmol/L (136-145)
[2019-07-19] MEDS: METOPROLOL TARTRATE 25 MG TAB PO SCH ×2 (08:32→17:42)
[2019-07-19] MEDS: TRAMADOL HCL 50 MG TAB PO PRN ×2 (08:32→17:43)
[2019-07-19] MEDS: NORTRIPTYLINE HCL 10 MG CAP PO SCH (08:33)
--- NOTE | 2019-07-19 12:42 | History and Physical ---
CHIEF COMPLAINT: 1. Diarrhea. 2. Headache. 3. Weakness. HISTORY OF PRESENT ILLNESS: This is an 84-year-old female with a past medical history of hypertension, chronic pain syndrome, chronic arthritis, chronic back pain, was in her restroom until patient started developing severe headache and neck pain. The patient also has chronic diarrhea, weakness. The patient was brought to the emergency room by son. No chest pain. No cough. No fever. No shortness of breath. No leg pain or leg swelling. No bleeding per rectum. ALLERGIES: NO KNOWN DRUG ALLERGIES. PAST MEDICAL HISTORY: 1. Hypertension. 2. Osteoarthritis. PAST SURGICAL HISTORY: Appendectomy, right knee replacement, and cholecystectomy. FAMILY HISTORY: Noncontributory. SOCIAL HISTORY: The patient is a and lives with son. HABITS: Denies smoking. Denies alcohol use. Denies illicit drug use. MEDICATIONS: List attached. REVIEW OF SYSTEMS: CONSTITUTIONAL: Denies fatigue or weakness. HEENT: No diplopia or blurring of vision. CARDIOPULMONARY: No chest pain. No shortness of breath. No cough. ALIMENTARY SYSTEM: No nausea. Has diarrhea. No vomiting. No bleeding per rectum. GENITOURINARY: No dysuria, no hematuria. MUSCULOSKELETAL: No joint pain. CENTRAL NERVOUS SYSTEM: No focal weakness. PHYSICAL EXAMINATION: GENERAL: This is an 84-year-old female, who is alert, oriented x2. VITAL SIGNS: Temperature 98.2, pulse 82, respiratory rate 18, blood pressure 134/84. HEENT: Head is atraumatic and normocephalic. Pupils bilaterally equal to light. Extraocular muscles intact. NECK: Supple. No JVD. No carotid bruit. LUNGS: Clear to auscultation and percussion bilaterally. No added sounds. HEART: S1, S2. Regular rate and rhythm. No S3, S4, or murmur. ABDOMEN: Soft. Mild generalized tenderness. No guarding. No rigidity. EXTREMITIES: No pedal edema. Peripheral pulses +1. MANAGER WILLOW: Grossly nonfocal. DICTATION ENDS HERE. MD PARISH Beckett/MODL /[id number]
[2019-07-19] MEDS: SODIUM BICARBONATE 8.4% SYRING 150 ML in DEXTROSE 5% 1,000 ML IV SCH (18:45)
--- NOTE | 2019-07-19 19:01 | NUR ---
BEDSIDE SHIFT REPORT GIVEN TO ONCOMING NURSE. PT SLEEPING, EASILY AROUSED, NO SIGNS OF DISTRESS. IN STABLE CONDITION.
[2019-07-20] VITALS (8 sets, daily range): BP systolic 100–167; BP diastolic 73–98
--- NOTE | 2019-07-20 00:10 | Consultation ---
DATE OF CONSULTATION: REASON FOR CONSULTATION: Diarrhea. HISTORY OF PRESENT ILLNESS: Thank you so much for asking me to see this patient. Ms. Mckeon is a very pleasant 84-year-old white female, who has history of hypertension, chronic pain syndrome, chronic arthritis, chronic back pain. She tells me she gets recurrent UTI. She does have history of chronic diarrhea. Over the last week or so, it is getting progressively worse. There is no fever, no chills, but she has some abdominal cramping. The patient came to the hospital where she is being admitted. PAST MEDICAL HISTORY: Hypertension, osteoarthritis, recurrent UTI. PAST SURGICAL HISTORY: Appendectomy, right total knee replacement, cholecystectomy. ALLERGIES: NKA. SOCIAL HISTORY: There is no smoking, drug abuse, or alcohol abuse. FAMILY HISTORY: Hypertension. REVIEW OF SYSTEMS: At the present time, she says she is feeling better besides diarrhea and weakness she denies any. When she first came, she was in acute kidney injury with electrolyte imbalance. She was seen by Renal. She received potassium supplement and IV fluids. Her blood cultures have been negative. Her urine cultures were negative. When she first came, her white count was 12.56 went up to 22.4, came down to 7.09. I do not see if that was ordered. I do not see stools for C diff. The patient was currently lying in bed comfortably, complaining of diarrhea. PHYSICAL EXAMINATION: GENERAL: She is currently alert, oriented, does not seem to be in acute distress. VITAL SIGNS: Stable, currently afebrile. HEENT: She is not icteric. NECK: Supple. CHEST: Clear. HEART: S1 and S2. No murmurs. ABDOMEN: Soft. Bowel sounds present. EXTREMITIES: No edema. SKIN: No rash. IMPRESSION: Diarrhea, present on admission. The patient has history of recurrent urinary tract infection, concern about Clostridium difficile. Agree with stool for Clostridium difficile. Even though it was ordered, I am going to order again and I think it is present on admission. Agree with oral vancomycin. Obtain stools for culture and sensitivity. IV fluids for the time being. Electrolyte imbalance to correct her electrolyte. Further recommendations to follow. Clinically, she seems to be stable. If clostridium difficile is negative, we will pursue other diagnosis. MD NIEVES Gamez/ORIANA /[id number]
[2019-07-20] MEDS: VANCOMYCIN 250MG/5ML ORAL SOLN PO SCH ×3 (01:36→18:00)
[2019-07-20] MEDS: TRAMADOL HCL 50 MG TAB PO PRN ×3 (04:33→23:51)
[2019-07-20 05:27] LABS: BASOPHILS # (AUTO) 0.1 (0.0-0.1); BASOPHILS % 0.6 % (0.0-1.0); EOSINOPHILS # (AUTO) 0.5 (0.0-0.4); EOSINOPHILS % 4.7 % (0.0-6.0); HEMATOCRIT 40.1 % (34.2-44.1); HEMOGLOBIN 13.6 g/dL (12.0-16.0); LYMPHOCYTES % 8.7 % (18.0-39.1); MEAN CORPUSCULAR HEMOGLOBIN 31.8 pg (28-32); MEAN CORPUSCULAR HGB CONC 33.9 g/dL (31-35); MEAN CORPUSCULAR VOLUME 93.7 fL (81-99); MONOCYTES % 8.5 % (4.4-11.3); NEUTROPHILS # (AUTO) 8.6 (2.1-6.9); NEUTROPHILS % 76.7 % (38.7-80.0); PLATELET COUNT 308 x10e3/uL (140-360); RED BLOOD COUNT 4.28 x10e6/uL (3.6-5.1); RED CELL DISTRIBUTION WIDTH 13.3 % (11.7-14.4)
[2019-07-20 05:46] LABS: ALANINE AMINOTRANSFERASE 12 IU/L (0-55); ALBUMIN 2.3 g/dL (3.5-5.0); ALBUMIN/GLOBULIN RATIO 0.6 (0.8-2.0); ALKALINE PHOSPHATASE 80 IU/L (40-150); ANION GAP 12.9 mmol/L (8-16); BLOOD UREA NITROGEN 8 mg/dL (7-26); BUN/CREATININE RATIO 13 (6-25); CALCIUM 9.6 mg/dL (8.4-10.2); CARBON DIOXIDE 20 mmol/L (22-29); CHLORIDE 101 mmol/L (98-107); CREATININE, SERUM 0.63 mg/dL (0.57-1.11); EST GLOMERULAR FILTRATION RATE > 60 ML/MIN (60-); GLUCOSE 130 mg/dL (74-118); SODIUM 131 mmol/L (136-145)
[2019-07-20 05:50] LABS: POTASSIUM 2.9 mmol/L (3.5-5.1)
--- NOTE | 2019-07-20 06:01 | NUR ---
RECEIVED CRITICAL LOW K- 2.9, PAGED DR FOX. AWAITING FOR MD TO CALL BACK
--- NOTE | 2019-07-20 06:40 | NUR ---
SPOKE TO DR ESPARZA. NEW ORDER RECEIVED
[2019-07-20] MEDS ORDERED: POTASSIUM CHLORIDE 20MEQ/100ML 300 ML IV ONE (06:45)
[2019-07-20] MEDS: SODIUM BICARBONATE 8.4% SYRING 150 ML in DEXTROSE 5% 1,000 ML IV SCH ×3 (07:00→21:23)
--- NOTE | 2019-07-20 07:00 | NUR ---
RCD PT VAT BED PT IS ALERT AND ORIENTED RESTING ON BED ,IV INFILTRATED BED LOW AND LOCKED CALL LIGHT IN REACH
[2019-07-20] MEDS: ACETAMINOPHEN 325 MG TAB PO PRN ×3 (08:20→21:23)
[2019-07-20] MEDS: METOPROLOL TARTRATE 25 MG TAB PO SCH ×2 (09:00→16:53)
[2019-07-20] MEDS: NORTRIPTYLINE HCL 10 MG CAP PO SCH (09:00)
[2019-07-20] MEDS ORDERED: POTASSIUM PHOSPHATE 20 MM in SODIUM CHLORIDE 0.9% 250ML 250 ML IV ONE (16:00)
--- NOTE | 2019-07-20 17:00 | NUR ---
HR 124 ,AC TO TELY READING A FIB 117 /MT PAGED DR Aby FLOREZ TO NOTIFY THAT
--- NOTE | 2019-07-20 18:12 | NUR ---
AGAIN PAGED DR Aby FLOREZ TO NOTIFY THAT
--- NOTE | 2019-07-20 18:30 | NUR ---
TALKED TO DR FLOREZ REGARDING CONSULTATION HE SAID HE IS COMING ON TOMORROW
--- NOTE | 2019-07-20 18:36 | NUR ---
DR Aby FLOREZ RETURNED THE CALL AND GOT NEW ORDERS
--- NOTE | 2019-07-20 19:11 | NUR ---
PT RESTING ON BED BED SIDE REPORT GIVEN TO ONCOMING NURSE
[2019-07-20] MEDS ORDERED: METOPROLOL TARTRATE 25 MG TAB PO NR (19:15)
--- NOTE | 2019-07-20 19:22 | NUR ---
Received bedside report from day nurse. Patient resting in bed, no s/s of distress at this time. All safety measures in place. Will continue to monitor.
[2019-07-20] MEDS ORDERED: METOPROLOL TARTRATE 50 MG TAB PO SCH (21:00)
[2019-07-21] VITALS (8 sets, daily range): BP systolic 102–117; BP diastolic 61–80
[2019-07-21] MEDS: VANCOMYCIN 250MG/5ML ORAL SOLN PO SCH ×3 (01:38→17:17)
--- NOTE | 2019-07-21 03:11 | NUR ---
Dr. Welsh here to see patient. Says that he is not planning on doing colonoscopy at this time, and may reconsider once her condition improves.
[2019-07-21 06:35] LABS: ALANINE AMINOTRANSFERASE 9 IU/L (0-55); ALBUMIN 2.4 g/dL (3.5-5.0); ALBUMIN/GLOBULIN RATIO 0.7 (0.8-2.0); ALKALINE PHOSPHATASE 80 IU/L (40-150); ANION GAP 9.7 mmol/L (8-16); BLOOD UREA NITROGEN 8 mg/dL (7-26); BUN/CREATININE RATIO 13 (6-25); CALCIUM 9.3 mg/dL (8.4-10.2); CARBON DIOXIDE 30 mmol/L (22-29); CHLORIDE 96 mmol/L (98-107); CREATININE, SERUM 0.63 mg/dL (0.57-1.11); EST GLOMERULAR FILTRATION RATE > 60 ML/MIN (60-); GLUCOSE 106 mg/dL (74-118); MAGNESIUM 1.7 MG/DL (1.3-2.1); PHOSPHORUS 2.6 MG/DL (2.3-4.7); POTASSIUM 3.7 mmol/L (3.5-5.1); SODIUM 132 mmol/L (136-145)
--- NOTE | 2019-07-21 06:59 | NUR ---
Bedside report given to day nurse. Patient resting in bed, no s/s of distress at this time. All safety measures in place.
--- NOTE | 2019-07-21 07:00 | NUR ---
RCD PT VAT BED PT IS ALERT AND ORIENTED RESTING ON BED ,IV PATENT BY SALINE FLUSH BED LOW AND LOCKED CALL LIGHT IN REACH
[2019-07-21] MEDS: TRAMADOL HCL 50 MG TAB PO PRN ×2 (07:37→19:36)
[2019-07-21] MEDS: NORTRIPTYLINE HCL 10 MG CAP PO SCH (09:00)
[2019-07-21] MEDS: METOPROLOL TARTRATE 50 MG TAB PO SCH ×2 (09:00→16:36)
[2019-07-21] MEDS: ACETAMINOPHEN 325 MG TAB PO PRN (09:55)
[2019-07-21] MEDS: SODIUM CHLORIDE 0.9% 1000ML 1,000 ML IV SCH (12:45)
--- NOTE | 2019-07-21 17:08 | Progress Note ---
DATE: SUBJECTIVE: Ms. Mckeon is lying in bed comfortably. Her diarrhea has improved. She is a little stronger. REVIEW OF SYSTEMS: Otherwise is unremarkable, except she is weak. The patient's Clostridium difficile is still pending unfortunately. Her white count is coming down to 11.19. PHYSICAL EXAMINATION: GENERAL: She is currently alert, oriented, follows commands. VITAL SIGNS: Stable, currently afebrile. HEENT: She is not icteric. NECK: Supple. CHEST: Clear. HEART: S1, S2. No murmurs. Abdomen: Soft. Bowel sounds present. No tenderness. EXTREMITIES: No edema. SKIN: No rash. IMPRESSION: 1. Clostridium difficile, on admission, clinically seems to be getting better. Continue with plan as ordered. 2. Dehydration. Continue with treatment as ordered. 3. Debility, seems to be better. 4. We will follow with you. MD NIEVES Gamez/ORIANA /[id number]
--- NOTE | 2019-07-21 18:42 | NUR ---
PT RESTING ON BED BED SIDE REPORT GIVEN TO ONCOMING NURSE
[2019-07-22] VITALS (8 sets, daily range): BP systolic 106–139; BP diastolic 57–97
[2019-07-22] MEDS: ACETAMINOPHEN 325 MG TAB PO PRN ×2 (01:52→13:00)
[2019-07-22] MEDS: VANCOMYCIN 250MG/5ML ORAL SOLN PO SCH ×3 (02:50→17:03)
[2019-07-22] MEDS: SODIUM CHLORIDE 0.9% 1000ML 1,000 ML IV SCH ×2 (04:30→15:25)
[2019-07-22 05:37] LABS: BASOPHILS # (AUTO) 0.1 (0.0-0.1); BASOPHILS % 0.9 % (0.0-1.0); EOSINOPHILS # (AUTO) 0.7 (0.0-0.4); EOSINOPHILS % 8.5 % (0.0-6.0); HEMATOCRIT 37.3 % (34.2-44.1); HEMOGLOBIN 12.7 g/dL (12.0-16.0); LYMPHOCYTES # (AUTO) 0.9 (1.0-3.2); LYMPHOCYTES % 10.9 % (18.0-39.1); MEAN CORPUSCULAR HEMOGLOBIN 32.1 pg (28-32); MEAN CORPUSCULAR VOLUME 94.2 fL (81-99); MONOCYTES # (AUTO) 0.8 (0.2-0.8); MONOCYTES % 9.6 % (4.4-11.3); NEUTROPHILS # (AUTO) 5.6 (2.1-6.9); NEUTROPHILS % 69.4 % (38.7-80.0); PLATELET COUNT 291 x10e3/uL (140-360); RED BLOOD COUNT 3.96 x10e6/uL (3.6-5.1); RED CELL DISTRIBUTION WIDTH 13.4 % (11.7-14.4)
[2019-07-22 05:55] LABS: ANION GAP 13.1 mmol/L (8-16); BLOOD UREA NITROGEN 6 mg/dL (7-26); BUN/CREATININE RATIO 10 (6-25); CALCIUM 8.4 mg/dL (8.4-10.2); CARBON DIOXIDE 26 mmol/L (22-29); CHLORIDE 98 mmol/L (98-107); CREATININE, SERUM 0.62 mg/dL (0.57-1.11); EST GLOMERULAR FILTRATION RATE > 60 ML/MIN (60-); GLUCOSE 83 mg/dL (74-118); POTASSIUM 3.1 mmol/L (3.5-5.1); SODIUM 134 mmol/L (136-145)
--- NOTE | 2019-07-22 07:00 | NUR ---
RCD PT AT BED PT IS ALERT AND ORIENTED RESTING ON BED ,IV PATENT BY SALINE FLUSH BED LOW AND LOCKED CALL LIGHT IN REACH
[2019-07-22] MEDS: METOPROLOL TARTRATE 50 MG TAB PO SCH ×2 (07:56→17:00)
[2019-07-22] MEDS: TRAMADOL HCL 50 MG TAB PO PRN ×2 (07:56→20:24)
[2019-07-22] MEDS: NORTRIPTYLINE HCL 10 MG CAP PO SCH (07:56)
[2019-07-22] MEDS: POTASSIUM CHLORIDE 10MEQ EA PO SCH (09:20)
--- NOTE | 2019-07-22 09:26 | NUR ---
PAGED DR Aby FLOREZ TO CLARIFICATION OF VANCOMYCIN
[2019-07-22] MEDS: POTASSIUM CHLORIDE 20MEQ/100ML 100 ML IV SCH ×2 (09:41→12:00)
--- NOTE | 2019-07-22 11:17 | NUR ---
Educated patient on IMM letter. Verbalized understanding and signed. Copy to pt transition folder, and original placed in chart
--- NOTE | 2019-07-22 15:47 | Progress Note ---
DATE: 07/22/2019 Cardiology Progress Note SUBJECTIVE: No major events overnight. No chest pain, shortness of breath. OBJECTIVE: VITAL SIGNS: Temperature afebrile, pulse 88, respiratory rate 18, blood pressure 106/57, saturating 97% on room air. GENERAL: A 84-year-old female. No acute distress. CARDIOVASCULAR: Regular rate and rhythm. No murmurs, rubs, or gallops. LUNGS: Clear to auscultation anteriorly. ABDOMEN: Soft, nontender, nondistended. NEURO AND PSYCH: Alert and oriented to person, place, and time. Normal affect. INPATIENT MEDICATIONS: Reviewed. LABORATORY DATA: Reviewed. Potassium 3.1. White count is now normalized. TELEMETRY DATA: Reviewed, shows sinus rhythm with PACs with some short runs of atrial fibrillation. ASSESSMENT: Paroxysmal atrial fibrillation. PLAN: Continue metoprolol 50 mg b.i.d. Echocardiogram is still pending. We will add aspirin 81 mg daily. The patient is not a candidate for full-dose anticoagulation for age and frailty, her issues will be discussed as an outpatient once GI issues resolve. Thank you for this consult. We will continue to follow. MD MILDRED San/ORIANA /[id number]
--- NOTE | 2019-07-22 18:50 | NUR ---
PT RESTING ON BED BED SIDE REPORT GIVEN TO ONCOMING NURSE
--- NOTE | 2019-07-22 19:30 | NUR ---
Walking rounds complete, pt alert resp even and unlabored, no distress noted. call light in reach.
--- NOTE | 2019-07-22 20:42 | Consultation ---
DATE OF CONSULTATION: 07/21/2019 Cardiology Consult Note REASON FOR CONSULT: Atrial fibrillation. CHIEF COMPLAINT: Diarrhea. HISTORY OF PRESENT ILLNESS: An 84-year-old female, no previous cardiovascular issues, who presents with subacute diarrhea, weakness, and electrolyte disturbances, was noted to be in atrial fibrillation by EKG on admission, has been in and out of atrial fibrillation, currently in sinus rhythm since admission per telemetry. Denies any chest pain, shortness of breath, orthopnea, PND or lower extremity edema. No previous cardiovascular issues. PAST MEDICAL HISTORY: Hypertension and osteoarthritis. SOCIAL HISTORY: She does not smoke, drink, or abuse drugs. FAMILY HISTORY: Noncontributory. REVIEW OF SYSTEMS: As per HPI, otherwise negative. OUTPATIENT MEDICATIONS: Reviewed. ALLERGIES: NO KNOWN DRUG ALLERGIES. OBJECTIVE: VITAL SIGNS: Temperature afebrile, pulse 88, respiratory rate 18, blood pressure 115/70, saturating 97% on room air. GENERAL: Elderly female, no acute distress. CARDIOVASCULAR: Regular rate and rhythm. No murmurs, rubs, or gallops. LUNGS: Clear to auscultation anteriorly. ABDOMEN: Soft, nontender, nondistended. NEURO AND PSYCH: Alert and oriented to person, place, and time. Normal affect. INPATIENT MEDICATIONS: Reviewed. LABORATORY DATA: Reviewed, notable for white blood cell count of 22, now improved, hemoglobin 13. Potassium of 2.9, now improving. Troponins negative. BNP 95. ASSESSMENT AND PLAN: Paroxysmal atrial fibrillation. PLAN: Continue low-dose beta blockers as blood pressure tolerates, remains in sinus rhythm today. Replete potassium as needed. Echocardiogram is pending. Given patient's age, frailty, and recent issues with diarrhea, currently not a good candidate for full-dose anticoagulation. Once diarrhea issues resolves, the patient follows up in clinic. We will discuss oral anticoagulation with her and family at that point. Further recommendations with echocardiogram results. Thank you for this consult. We will continue to follow. MD MILDRED San/ORIANA /[id number]
[2019-07-23] VITALS (8 sets, daily range): BP systolic 121–149; BP diastolic 67–94
[2019-07-23] MEDS: VANCOMYCIN 250MG/5ML ORAL SOLN PO SCH ×3 (02:11→17:13)
[2019-07-23] MEDS: SODIUM CHLORIDE 0.9% 1000ML 1,000 ML IV SCH ×2 (04:30→18:14)
[2019-07-23] MEDS: TRAMADOL HCL 50 MG TAB PO PRN ×3 (04:38→21:35)
[2019-07-23 06:05] LABS: ANION GAP 12.1 mmol/L (8-16); BLOOD UREA NITROGEN < 5 mg/dL (7-26); CALCIUM 8.4 mg/dL (8.4-10.2); CARBON DIOXIDE 25 mmol/L (22-29); CHLORIDE 101 mmol/L (98-107); CREATININE, SERUM 0.63 mg/dL (0.57-1.11); EST GLOMERULAR FILTRATION RATE > 60 ML/MIN (60-); GLUCOSE 88 mg/dL (74-118); MAGNESIUM 1.4 MG/DL (1.3-2.1); POTASSIUM 3.1 mmol/L (3.5-5.1); SODIUM 135 mmol/L (136-145)
[2019-07-23 06:19] LABS: BUN/CREATININE RATIO 8 (6-25)
--- NOTE | 2019-07-23 06:50 | NUR ---
report received from evening nurse. patient resting in bed, no complaints at this time. WCTM.
--- NOTE | 2019-07-23 07:32 | NUR ---
Walking rounds complete, report given to oncoming nurse.
[2019-07-23] MEDS ORDERED: POTASSIUM CHLORIDE 20MEQ/100ML 200 ML IV ONE (08:45)
[2019-07-23] MEDS: POTASSIUM CHLORIDE 10MEQ EA PO SCH (08:59)
[2019-07-23] MEDS: ASPIRIN 81 MG CHEW TAB PO SCH (08:59)
[2019-07-23] MEDS: METOPROLOL TARTRATE 50 MG TAB PO SCH ×2 (08:59→17:13)
[2019-07-23] MEDS: NORTRIPTYLINE HCL 10 MG CAP PO SCH (08:59)
[2019-07-23] MEDS ORDERED: POTASSIUM CHLORIDE 10MEQ EA PO ONE ×2 (09:20→09:55)
--- NOTE | 2019-07-23 10:58 | NUR ---
IMM letter delivered and explained to pt. She verbalized understanding. Signed copy placed in chart. Copy to pt's transition of care folder. PT recommending home health. Pt states she wants to speak with her daughter regarding home health prior to making any decisions. CM business card at bedside. CM asked pt to call CM once she makes a decision.
[2019-07-23] MEDS: CHOLESTYRAMINE 4 GM PACKET PO SCH ×2 (11:56→17:13)
--- NOTE | 2019-07-23 12:00 | NUR ---
patient is having frequent liquid stools. Infectious disease Abdiel GIANG, aware of stools. Both bags of IV potassium finished. Patient tolerated well. Recheck ordered for 1500.
[2019-07-23] MEDS: ACETAMINOPHEN 325 MG TAB PO PRN (14:00)
[2019-07-23 16:52] LABS: ANION GAP 11.2 mmol/L (8-16); BLOOD UREA NITROGEN < 5 mg/dL (7-26); CALCIUM 8.6 mg/dL (8.4-10.2); CARBON DIOXIDE 26 mmol/L (22-29); CHLORIDE 101 mmol/L (98-107); CREATININE, SERUM 0.63 mg/dL (0.57-1.11); EST GLOMERULAR FILTRATION RATE > 60 ML/MIN (60-); GLUCOSE 95 mg/dL (74-118); POTASSIUM 4.2 mmol/L (3.5-5.1); SODIUM 134 mmol/L (136-145)
[2019-07-23 17:13] LABS: BUN/CREATININE RATIO 8 (6-25)
--- NOTE | 2019-07-23 19:05 | NUR ---
Bedside nursing shift report completed with morning nurse. Pt lying in bed, HOB 45 degrees. Denies pain at this time. Call light within reach. Bed low and locked. Will continue to monitor.
[2019-07-23] MEDS ORDERED: CITRATE OF MAGNESIA 300ML BOTTLE PO ONE ×2 (19:15)
--- NOTE | 2019-07-23 20:27 | Progress Note ---
DATE: 07/23/2019 Cardiology Progress Note SUBJECTIVE: The patient denies chest pain or shortness of breath. She reports she continues to have abdominal distention and diarrhea. OBJECTIVE: VITAL SIGNS: Temperature 97.6 degrees, pulse 98, respiratory rate 19, blood pressure 120/75, and oxygen saturation 96%. GENERAL: Elderly woman, in no acute distress, awake and alert. LUNGS: Clear to auscultation bilaterally. No wheezes or crackles. HEART: Normal rate. Regular rhythm. No murmur. Normal S1 and S2. ABDOMEN: Soft and nontender. EXTREMITIES: No edema. CARDIAC MEDICATIONS: Cholestyramine 4 g p.o. b.i.d., metoprolol tartrate 50 mg p.o. b.i.d., and aspirin 81 mg p.o. daily. LABORATORY DATA: Sodium 134, potassium 4.2, chloride 101, CO2 26, BUN less than 5, and creatinine 0.63. Telemetry was personally reviewed and interpreted, revealing normal sinus rhythm with PACs. IMPRESSION: 1. Paroxysmal atrial fibrillation. 2. Diarrhea. 3. Hypertension. RECOMMENDATIONS: Continue current cardiac medications. Replete electrolytes. Monitor the patient on telemetry. Currently sinus rhythm. Given the patient's age, frailty, and current diarrhea, currently not a candidate for anticoagulation. We will discuss as an outpatient when she is recovered from her current illness. Assess fall risk. Thank you for this consult. We will continue to follow. Lara Angel MD ABS/MODL /[id number]
[2019-07-24] VITALS (8 sets, daily range): BP systolic 113–151; BP diastolic 55–94
[2019-07-24] MEDS ORDERED: BISACODYL 5 MG TAB EC PO ONE ×3 (00:30→01:00)
[2019-07-24] MEDS: VANCOMYCIN 250MG/5ML ORAL SOLN PO SCH ×3 (01:39→17:13)
[2019-07-24] MEDS: SODIUM CHLORIDE 0.9% 1000ML 1,000 ML IV SCH (06:27)
--- NOTE | 2019-07-24 07:00 | NUR ---
BS shift report completed. Pt no acute distress noted.
--- NOTE | 2019-07-24 07:17 | NUR ---
Dr. Welsh paged for colonoscopy consent order.
[2019-07-24] MEDS: METOPROLOL TARTRATE 50 MG TAB PO SCH (09:00)
[2019-07-24] MEDS: CHOLESTYRAMINE 4 GM PACKET PO SCH ×2 (09:00→17:00)
[2019-07-24] MEDS: ASPIRIN 81 MG CHEW TAB PO SCH (09:00)
[2019-07-24] MEDS: NORTRIPTYLINE HCL 10 MG CAP PO SCH (09:30)
[2019-07-24] MEDS: POTASSIUM CHLORIDE 10MEQ EA PO SCH (09:30)
--- NOTE | 2019-07-24 12:11 | Progress Note ---
DATE: 07/24/2019 Cardiology Progress Note SUBJECTIVE: The patient denies chest pain or shortness of breath. OBJECTIVE: VITAL SIGNS: Temperature 97.6 degrees, pulse 103, respiratory rate 18, blood pressure 141/84, and oxygen saturation 97% on room air. GENERAL: Elderly woman, no acute distress. Awake and alert. LUNGS: Clear to auscultation bilaterally. No wheezes or crackles. CARDIOVASCULAR: Normal rate, irregular rhythm. No murmur. Normal S1 and S2. ABDOMEN: Soft and nontender. EXTREMITIES: No edema. CARDIAC MEDICATIONS: 1. Cholestyramine 4 g p.o. b.i.d. 2. Metoprolol tartrate 50 mg p.o. b.i.d. 3. Aspirin 81 mg p.o. daily. LABORATORY DATA: None today. TELEMETRY: Personally reviewed and interpreted, revealing normal sinus rhythm with PACs and PVCs. Transient complete heart block was noted overnight in the early childhood lead teacher hours. IMPRESSION: 1. Paroxysmal atrial fibrillation. 2. Transient complete heart block. 3. Hypertension. 4. Diarrhea. RECOMMENDATIONS: Start metoprolol tartrate. Continue current cardiac medications otherwise. Monitor closely on telemetry. We will request EP consultation to discuss possible permanent pacemaker. Given her frailty, she is not a candidate for anti-question at this time. We will discuss as an outpatient when she is recovered from her current illness. Assess fall risk. Management of diarrhea per primary. Antibiotics per Infectious Disease. Thank you for this consult. We will continue to follow. Lara Angel MD ABS/MODL /[id number]
--- NOTE | 2019-07-24 12:41 | Progress Note ---
DATE: 07/24/2019 Cardiology Progress Note SUBJECTIVE: The patient denies chest pain or shortness of breath. OBJECTIVE: VITAL SIGNS: Temperature 97.6 degrees, pulse 103, respiratory rate 18, blood pressure 141/84, and oxygen saturation 97% on room air. GENERAL: Awake, alert, in no acute distress. LUNGS: Clear to auscultation bilaterally. No wheezes or crackles. CARDIOVASCULAR: Normal rate. Regular rhythm. No murmur. Normal S1 and S2. ABDOMEN: Soft and nontender. EXTREMITIES: No edema. CARDIAC MEDICATIONS: 1. Cholestyramine 4 g p.o. b.i.d. 2. Metoprolol tartrate 50 mg p.o. b.i.d. 3. Aspirin 81 mg p.o. daily. LABORATORY DATA: None today. TELEMETRY: Personally reviewed and interrupted, revealed a normal sinus rhythm with PACs and PVCs DICTATION ENDS HERE Lara Angel MD ABS/MODL /[id number]
--- NOTE | 2019-07-24 13:00 | NUR ---
Telemetry called unit and asked that I pull tele leads apart and reconnect machine. When re-connected, patient's heart rate was 46. telemetry called my spectra to notify me, I was already at the bedside. Patient asymptomatic. BP- 125/58.
--- NOTE | 2019-07-24 13:10 | NUR ---
Dr. Angel notified of heart rate of 45. EKG ordered and picture of EKG sent to her. No orders received. Dr. Vasquez, EP physician, paged through her office. waiting for call back at this time.
--- NOTE | 2019-07-24 13:57 | Consultation ---
DATE OF CONSULTATION: 07/24/2019 EP Consultation REASON FOR CONSULTATION: High-grade AV block. HISTORY OF PRESENT ILLNESS: Ms. Sepulveda is an 84-year-old woman with a history of hypertension, who presented to the hospital with chronic diarrhea. The patient currently is being worked up for diarrhea and overnight, she was noted to have an episode of several blocked P waves. The patient was sleeping at the time. However, she denies having any issues with lightheadedness, dizziness, presyncope, or syncopal episodes in the past. REVIEW OF SYSTEMS: She currently denies having any fevers, chills, lightheadedness, dizziness, discharge from the eyes, nose, mouth, swollen lymph nodes in the neck or groin, chest pain, palpitations, shortness of breath, coughing, abdominal pain, nausea, vomiting, dysuria, hematuria, swelling in the joints, joint pain, numbness, tingling, weakness, swelling in the legs or arms, skin rashes, ulcers, depression, or anxiety. PAST MEDICAL HISTORY: As noted above. SOCIAL HISTORY: The patient does not smoke any cigarettes, drink alcohol, or use any illicit drugs. PAST SURGICAL HISTORY: The patient has not had any cardiac surgeries. FAMILY HISTORY: No significant family history of early cardiac or sudden arrhythmias. MEDICATIONS: Please see MAR. ALLERGIES: NO KNOWN DRUG ALLERGIES. PHYSICAL EXAMINATION: VITAL SIGNS: Temperature is 97.6, heart rate is 103, sinus rhythm, blood pressure is 141/84, and respiratory rate 12. Telemetry, I reviewed the telemetry. The patient does have sinus rhythm and for the episode in question, there was a PAC and then several blocked P waves. 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 GENERAL: No acute distress. Alert, awake, and oriented x3. HEENT: Normocephalic and atraumatic. Pupils are equal and reactive to light. LYMPH: No cervical or submandibular lymphadenopathy appreciated. CVS: S1 and S2. Regular rate and rhythm. RESPIRATORY: Good air entry globally. No wheezing. GI: Abdomen is soft and nontender. : No bladder fullness. No CVA tenderness. MUSCULOSKELETAL: No effusions or erythema noted in the knees or elbows bilaterally. EXTREMITIES: No edema in lower extremities or upper extremities bilaterally. SKIN: No bruising or ulcers noted. PSYCH: Mood is normal. Answers questions appropriately. LABORATORY DATA: Creatinine is 0.63 and potassium is 4.2. White count is 8.09 and hemoglobin is 12.7. Transthoracic echocardiogram demonstrates normal left ventricular ejection fraction with ejection fraction 60% to 65%. ASSESSMENT AND PLAN: Ms. Mckeon is an 84-year-old woman with a history of hypertension, who presents to the hospital with chronic diarrhea, currently being worked up for. 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 I discussed with the patient as well as her son, who is at bedside the implications of having this rhythm are due to the fact that the level of block is likely below the His and makes it an unsteady rhythm. There is no predictability of when it may occur and although the patient has not had symptoms before we cannot predict whether she will or will not develop symptoms later. I discussed with her and her son the possible treatment plan for this, which would include a permanent pacemaker implantation. I described the procedure to them in detail and discussed the indications, risks, and benefits of it. For now, the patient will be pursuing further workup for chronic diarrhea. EP can continue to follow along and assess the patient clinically. Thank you very much for this consultation. Please feel free to call for any questions. DO WATSON CYR/ORIANA /[id number]
--- NOTE | 2019-07-24 15:00 | NUR ---
patient resting in bed. HR- 47. patient states she does not feel bad, no complaints. repeat EKG completed and sent to Dr. Angel.
[2019-07-24] MEDS ORDERED: LIDOCAINE 1% W/EPINEPHRINE 20 ML VIAL ONE (16:42)
[2019-07-24] MEDS ORDERED: BACITRACIN 50,000 UNIT VIAL ONE (16:43)
[2019-07-24] MEDS ORDERED: SODIUM CHLORIDE 0.9% 1000ML 2,000 ML ONE (16:43)
[2019-07-24] MEDS ORDERED: MIDAZOLAM HCL 2 MG/2 ML VIAL ONE (16:44)
[2019-07-24] MEDS ORDERED: FENTANYL CITRATE/PF 100MCG/2 ML INJ ONE ×2 (16:44→18:14)
[2019-07-24] MEDS ORDERED: VANCOMYCIN 1GM/NS 250 ML 250 ML IV ONE (17:00)
--- NOTE | 2019-07-24 17:00 | NUR ---
laborer cook house called to notify me of possible pacemaker planned for today. orders for consent clarified.
[2019-07-24 17:19] LABS: INR 1.09; PROTHROMBIN TIME 14.8 seconds (11.9-14.5)
[2019-07-24] MEDS ORDERED: SODIUM CHLORIDE 0.9% 500ML 500 ML ONE (17:53)
--- NOTE | 2019-07-24 18:50 | NUR ---
patient returned from clinical laboratory manager. HR 111 at this time- atrial sensing per telecommunications switch technician. Left arm in sling- patient aware of restrictions to her left arm. will continue to reverbalize restrictions. Patient's son at bedside, both deny questions at this time.
--- NOTE | 2019-07-24 19:10 | NUR ---
Pt back from insertion of pacemaker. Completed bedside reporting with morning nurse. Pt alert and oriented to name. Denies pain at this time. Call light within reach. Family at bedside. Bed low and locked. Will continue to monitor.
--- NOTE | 2019-07-24 19:59 | NUR ---
Dr. Shirley notified of patient's events during my shift. 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 Casper wants diet order verified with Dr. Welsh. I called Dr. Welsh for updated plan of care to see if patient would be able to eat or drink now. waiting for return page at this time.
[2019-07-25] VITALS (7 sets, daily range): BP systolic 120–152; BP diastolic 60–82
[2019-07-25] MEDS: VANCOMYCIN 250MG/5ML ORAL SOLN PO SCH ×3 (02:00→18:00)
[2019-07-25 05:24] LABS: BASOPHILS % 0.7 % (0.0-1.0); EOSINOPHILS # (AUTO) 0.1 (0.0-0.4); EOSINOPHILS % 1.1 % (0.0-6.0); HEMATOCRIT 39.7 % (34.2-44.1); HEMOGLOBIN 13.1 g/dL (12.0-16.0); LYMPHOCYTES # (AUTO) 0.9 (1.0-3.2); LYMPHOCYTES % 7.3 % (18.0-39.1); MEAN CORPUSCULAR VOLUME 96.8 fL (81-99); MONOCYTES # (AUTO) 1.3 (0.2-0.8); MONOCYTES % 11.2 % (4.4-11.3); NEUTROPHILS # (AUTO) 9.5 (2.1-6.9); NEUTROPHILS % 79.1 % (38.7-80.0); PLATELET COUNT 332 x10e3/uL (140-360); RED CELL DISTRIBUTION WIDTH 13.8 % (11.7-14.4)
[2019-07-25 05:25] LABS: BASOPHILS # (AUTO) 0.1 (0.0-0.1)
[2019-07-25 05:43] LABS: ALBUMIN 2.6 g/dL (3.5-5.0); ALBUMIN/GLOBULIN RATIO 0.7 (0.8-2.0); ALKALINE PHOSPHATASE 77 IU/L (40-150); ANION GAP 12.4 mmol/L (8-16); BLOOD UREA NITROGEN 5 mg/dL (7-26); BUN/CREATININE RATIO 7 (6-25); CALCIUM 8.7 mg/dL (8.4-10.2); CARBON DIOXIDE 22 mmol/L (22-29); CHLORIDE 102 mmol/L (98-107); EST GLOMERULAR FILTRATION RATE > 60 ML/MIN (60-); GLUCOSE 90 mg/dL (74-118); POTASSIUM 3.4 mmol/L (3.5-5.1); SODIUM 133 mmol/L (136-145)
[2019-07-25 05:44] LABS: ALANINE AMINOTRANSFERASE < 6 IU/L (0-55)
--- NOTE | 2019-07-25 08:20 | Operative Report ---
DATE OF PROCEDURE: 07/24/2019 SURGEON: DONAVON HERNANDEZ DO CLINICAL INDICATION: An 84-year-old woman with history of hypertension, who presented to the hospital with chronic diarrhea. The patient was being worked up and was noted to have phase 4 block on telemetry, then with symptomatic bradycardia with heart rates in the 40s. She will receive a dual-chamber pacemaker. PROCEDURES PERFORMED: 1. Implantation of a St. Benji dual-chamber pacemaker. 2. Left upper extremity venogram. 3. Moderate sedation. PROCEDURE IN DETAIL: After informed consent was obtained, the patient was prepped and draped in the usual manner. Moderate sedation was used for this procedure and a total of 2 mg IV Versed and 150 mcg IV fentanyl were given by Norberto Dial RN for a total of 40 minutes. The patient was monitored by myself and the nurse. Preprocedure time-out and antibiotics were given to the patient. Left upper extremity venogram was performed, which demonstrated patency of the left axillary vein to the right atrium. Afterwards, 1% lidocaine was given to the left chest region and a 2 cm incision was created over the left chest. A pocket was then created over the pectoralis muscle. Hemostasis was confirmed. Then, using modified Seldinger technique, two uncomplicated venous access was obtained and two wires were subsequently inserted into the inferior vena cava. Afterwards, a 6-Croatian peel-away sheath inserted over one of the wires and a right ventricular pacing lead was inserted through the sheath and brought to the right ventricular apex using a pull-out technique. The lead was screwed to myocardium, automation lead demonstrated adequate threshold, and the sheath was peeled. Another 6-Croatian peel-away sheath was inserted over the wire and a right atrial pacing lead was inserted through that sheath and brought to right atrial appendage using a preformed J stylet. The lead was screwed to myocardium, automation lead demonstrated adequate threshold, and the sheath was peeled. Both leads were then sutured to muscle using 0 silk. The pocket was then irrigated thoroughly with antibiotic solution. The generator was brought into the field and the leads were plugged into the generator. Generator and leads were inserted into the pocket, and the generator was sutured to muscle using 0 silk. Then, in a standard 3-layer fashion, the pocket was closed using Vicryl and skin glue was applied. At the conclusion of procedure, the patient tolerated the procedure well without immediate complications. Fluoroscopy demonstrated normal cardiac silhouette. No evidence of pericardial effusion. No pneumothorax. No retained products within the pocket. IMPLANTED DEVICES: 1. St. Benji model HW8469, serial #[id number]. 2. RA 2087TC/46, serial #[id number]. 3. RV 2087TC/52, serial #[id number]. MEASUREMENTS: 1. RA 2.1 mV, 490 ohms, 0.75 V at 0.4 milliseconds. 2. RV 6.6 mV, 680 ohms, 0.5 V at 0.4 milliseconds. 3. Parameters DDDR 60/120. CONCLUSION: 1. Successful implantation of a St. Benji dual-chamber pacemaker. 2. No immediate complications. POSTPROCEDURE PLAN: 1. Bed rest for 6 hours. The patient can resume her prior diet. 2. Incision to be kept absolutely dry for 2 weeks. 3. Left arm to stay in a sling overnight. Then, for the next 2 weeks, use the arm for daily activities, but do not lift it over the shoulder in any direction, do not lift more than 10 pounds of weight. While sleeping at night, put the arm back in the sling. 4. Postprocedure antibiotics and pain medication be given. 5. Postprocedure EKG and chest x-ray to be performed. 6. Hold anticoagulation for 48 hours. 7. On discharge, please follow up with Dr. Ghotra in clinic in 2 weeks. DO WATSON CYR/MODL /[id number]
[2019-07-25] MEDS: SODIUM CHLORIDE 0.9% 1000ML 1,000 ML IV SCH ×2 (08:43→10:05)
[2019-07-25] MEDS: ASPIRIN 81 MG CHEW TAB PO SCH (08:43)
[2019-07-25] MEDS: POTASSIUM CHLORIDE 10MEQ EA PO SCH (08:44)
[2019-07-25] MEDS: CHOLESTYRAMINE 4 GM PACKET PO SCH ×2 (08:44→16:42)
--- NOTE | 2019-07-25 09:00 | NUR ---
spoke with Dr. Welsh, GI, regarding possible colonoscopy for patient. patient on clear liq diet. he directed me to speak with cardiology to get cardiac clearance for colonoscopy and to keep patient on clear liq.
--- NOTE | 2019-07-25 12:32 | NUR ---
Patient with decreased functional status since PT eval and now having difficulty with bed mobility and transfers requiring Max(A). Unsafe to go home with home health. PT recommends SNF placement. Addendum: 07/25/19 at 1234 by Titi Hayes PT Amended: Links added.
--- NOTE | 2019-07-25 15:26 | NUR ---
Nutrition Screen Note RD Recommendation for Physician: - When feasible, ADAT to goal of GI Soft Plan of Care: RD following, monitoring for tolerance and adequacy Nutrition reason for involvement: f/u Primary Diagnose(s): diarrhea, hypokalemia, hyponatremia PMH: HTN, arthritis, cholecystectomy Ht: 65 in Wt: 185.5 lb BMI: 30.9 kg/m2 IBW: [address] Assessment: 07/24: Follow up: Pt was seen resting in bed. She appeared somewhat confused. The pt is currently on clear liquids d/t her prepping for colonoscopy per nurse. Per nurse she was on a diet 2 days ago and was consuming food. Pt denied N/V and stated she has not had BM recently, LBM: 07/23. Pt gloria to cleaner laboratory equipment today. Pt needed emergent pacemaker yesterday which then caused diet to remain clear liquids. Will continue to monitor diet advancement. (07/17) 84 YOF admitted for diarrhea, seen today per MST screen. 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 Clear liquid diet initiated for lunch, tray at bedside and tolerance pending- assisted pt with set up and encouraged intake. Noted pt with 7 BMs today, continues with diarrhea/melena and C diff cultures pending. No wt loss noted, pt reports UBW of 170#. Skin intact. All questions and concerns addressed at time of visit. Chart reviewed. Labs and meds reviewed. Will continue to monitor. Current Diet: Clear liquids Malnutrition Evaluation (07/18/19) The patient does not meet criteria for a specified degree of malnutrition at this time. Will re-evaluate at follow-up as appropriate. Energy intake: Mild- decreased po intake x 3 days Weight loss: None. UBW of 170# per pt. Fat loss: none, ample skinfold thickness Muscle loss: none, shoulder round Supporting Evidence: Fluid accumulation: none observed Functional Status: not assessed Diet Education Needs Assessment: Diet education not indicated, on temporary/transitional diet. Diet tolerance: tolerance of CL pending Nutrition Care Level: Low Signed: Soha Stevens RD, LD Addendum: 07/25/19 at 1527 by Soha Stevens DIET Nutrition level: mod-pt is on clear liquids and not meeting calorie/protein needs at this time
[2019-07-25] MEDS ORDERED: BISACODYL 5 MG TAB EC PO ONE ×2 (15:30→16:30)
--- NOTE | 2019-07-25 15:57 | NUR ---
SPOKE WITH SON FOR PT ABOUT SNF ORDER, HE WAS GIVEN OPTIONS IN [facility] IN [facility] HE SIGNED CHOICE FOR [facility], FILED IN CHART ND WILL FAX CLINICALS TO BUILDING WITH [facility].
[2019-07-25] MEDS ORDERED: POTASSIUM CHLORIDE 20 MEQ TAB CR PO NR (16:00)
--- NOTE | 2019-07-25 17:18 | NUR ---
dr. lozano paged. patient is okay to proceed with colonoscopy from her standpoint. dr. emanuel notified, orders entered.
[2019-07-25] MEDS ORDERED: METOPROLOL SUCCINATE 50 MG TAB XL PO ONE (17:45)
[2019-07-25] MEDS ORDERED: METOPROLOL SUCCINATE 50 MG TAB XL PO NR (18:15)
[2019-07-25] MEDS ORDERED: PEG (High)/E-LYTE SOLN 4,000 ML BTL PO SCH (19:20)
[2019-07-25] MEDS ORDERED: PEG (High)/E-LYTE SOLN 4,000 ML BTL PO NR (19:20)
[2019-07-25] MEDS ORDERED: PEG (High)/E-LYTE SOLN 4,000 ML BTL PO ONE (19:20)
--- NOTE | 2019-07-25 20:09 | Progress Note ---
DATE: 07/25/2019 Cardiology Progress Note SUBJECTIVE: The patient denies chest pain or shortness of breath. She underwent pacemaker placement yesterday due to complete heart block. OBJECTIVE: VITAL SIGNS: Temperature 98.6 degrees, pulse 68, respiratory rate 19, blood pressure 120/82, and oxygen saturation 96%. GENERAL: Elderly woman, in no acute distress. Awake and alert. LUNGS: Clear to auscultation bilaterally. No wheezes or crackles. CARDIOVASCULAR: Normal rate. Regular rhythm. No murmur. Normal S1 and S2. ABDOMEN: Soft and nontender. EXTREMITIES: No edema. Left arm in sling. CARDIAC MEDICATIONS: Aspirin 81 mg p.o. daily and cholestyramine 4 g p.o. b.i.d. LABORATORY DATA: WBC 11.96, hemoglobin 13.1, hematocrit 39.7, and platelets 332. Sodium 132, potassium 3.4, chloride 102, CO2 22, BUN 5, and creatinine 0.7. Telemetry was personally reviewed and interpreted, revealing atrial fibrillation. IMPRESSION: 1. Paroxysmal atrial fibrillation. 2. Transient complete heart block, status post permanent pacemaker. 3. Hypertension. 4. Diarrhea. RECOMMENDATIONS: Resume metoprolol tartrate as heart rate is not well controlled. Continue to monitor on tele. Device checked this morning, demonstrated normal function, greater than 99% ventricular pacing. Given her frailty, she is not a candidate for anticoagulation at this time. Once she has recovered from her current illness, we will revisit anticoagulation as an outpatient. Further evaluation of diarrhea per GI. Antibiotics per Infectious Disease. Thank you for this consult. We will continue to follow. Lara Angel MD ABS/MODL /[id number]
[2019-07-25] MEDS: METRONIDAZOLE 500MG/NS 100ML 100 ML IV SCH (20:55)
--- NOTE | 2019-07-25 21:24 | Progress Note ---
DATE: SUBJECTIVE: Ms. Mckeon is stable. She has no chest pain or shortness of breath. She remains with diarrhea. REVIEW OF SYSTEMS: HEENT: Negative. PULMONARY: Negative. CARDIAC: Negative. LABORATORY DATA: Her white count is 11.9, hemoglobin of 13, hematocrit 39. Her laboratory data reviewed. Chart reviewed. Her white count is down to 8.9, went up to 11.96. Sodium 133, potassium 3.4. Her C difficile was negative. IMPRESSION: 1. Diarrhea, colitis. She is currently on Questran. We will DC oral vancomycin and put her on Flagyl. May need colonoscopy. 2. Debility. 3. Diarrhea for stool pathogen was sent. 4. Paroxysmal atrial fibrillation, complete heart block. Consider GI evaluation for colonoscopy. MD NIEVES Gamez/ORIANA /[id number]
[2019-07-25] MEDS: ACETAMINOPHEN 325 MG TAB PO PRN (21:51)
[2019-07-26] VITALS (7 sets, daily range): BP systolic 131–164; BP diastolic 70–90
[2019-07-26] MEDS ORDERED: CITRATE OF MAGNESIA 300ML BOTTLE PO ONE ×2 (00:30→06:00)
[2019-07-26] MEDS: SODIUM CHLORIDE 0.9% 1000ML 1,000 ML IV SCH (02:49)
[2019-07-26 05:09] LABS: BASOPHILS # (AUTO) 0.1 (0.0-0.1); BASOPHILS % 0.8 % (0.0-1.0); EOSINOPHILS # (AUTO) 0.3 (0.0-0.4); EOSINOPHILS % 2.7 % (0.0-6.0); HEMATOCRIT 38.9 % (34.2-44.1); HEMOGLOBIN 12.8 g/dL (12.0-16.0); LYMPHOCYTES # (AUTO) 0.9 (1.0-3.2); LYMPHOCYTES % 9.3 % (18.0-39.1); MEAN CORPUSCULAR HEMOGLOBIN 31.8 pg (28-32); MEAN CORPUSCULAR HGB CONC 32.9 g/dL (31-35); MEAN CORPUSCULAR VOLUME 96.5 fL (81-99); MONOCYTES # (AUTO) 1.2 (0.2-0.8); MONOCYTES % 12.8 % (4.4-11.3); NEUTROPHILS # (AUTO) 7.2 (2.1-6.9); NEUTROPHILS % 73.9 % (38.7-80.0); PLATELET COUNT 282 x10e3/uL (140-360); RED BLOOD COUNT 4.03 x10e6/uL (3.6-5.1); RED CELL DISTRIBUTION WIDTH 13.9 % (11.7-14.4)
[2019-07-26] MEDS: ACETAMINOPHEN 325 MG TAB PO PRN (05:27)
[2019-07-26 05:35] LABS: ANION GAP 13.8 mmol/L (8-16); BLOOD UREA NITROGEN 5 mg/dL (7-26); BUN/CREATININE RATIO 8 (6-25); CALCIUM 8.8 mg/dL (8.4-10.2); CARBON DIOXIDE 15 mmol/L (22-29); CHLORIDE 107 mmol/L (98-107); CREATININE, SERUM 0.63 mg/dL (0.57-1.11); EST GLOMERULAR FILTRATION RATE > 60 ML/MIN (60-); GLUCOSE 87 mg/dL (74-118); SODIUM 133 mmol/L (136-145)
[2019-07-26] MEDS: METRONIDAZOLE 500MG/NS 100ML 100 ML IV SCH ×3 (05:37→21:14)
[2019-07-26 05:42] LABS: POTASSIUM 2.8 mmol/L (3.5-5.1)
[2019-07-26] MEDS: TRAMADOL HCL 50 MG TAB PO PRN ×2 (06:17→20:18)
[2019-07-26] MEDS: POTASSIUM CHLORIDE 10MEQ EA PO SCH (06:18)
[2019-07-26] MEDS ORDERED: POTASSIUM CHLORIDE 10MEQ/100ML 100 ML IV ONE ×4 (06:30→09:30)
--- NOTE | 2019-07-26 07:25 | NUR ---
PATIENT IN BED RESTING IN BED WITH NO S/S OF DISCOMFORT. POTASSIUM REPLACEMENT IN PROGRESS. BED IN LOWER POSITION, CALL LIGHT AT REACH.
[2019-07-26] MEDS: CHOLESTYRAMINE 4 GM PACKET PO SCH ×2 (09:00→17:52)
[2019-07-26] MEDS ORDERED: METOPROLOL SUCCINATE 50 MG TAB XL PO SCH (09:00)
--- NOTE | 2019-07-26 10:39 | NUR ---
PATIENT ASSISTED WITH DIAPER CHANGE, CLEARING FOR COLONOSCOPY.
--- NOTE | 2019-07-26 11:43 | NUR ---
k+ too low wait for replacement/f/u tomorrow Addendum: 07/26/19 at 1144 by Bryce Moore PTA Amended: Links added.
[2019-07-26] MEDS ORDERED: PROPOFOL IV EMULSION 10 MG/ML 20 ML VIAL ONE (11:46)
[2019-07-26] MEDS ORDERED: LIDOCAINE HCL 2% LOCAL INJ 5 ML SDV VIAL INJ ONE (11:46)
[2019-07-26] MEDS ORDERED: FENTANYL CITRATE/PF 100MCG/2 ML INJ ONE (15:34)
[2019-07-26] MEDS ORDERED: MIDAZOLAM HCL 2 MG/2 ML VIAL ONE (15:34)
--- NOTE | 2019-07-26 16:04 | NUR ---
PATIENT OFF UNIT TO ENDOSCOPY.
--- NOTE | 2019-07-26 16:52 | NUR ---
CALLED FACILITY TO FIND OUT ABOUT THE AUTH, WILL GET CALL BACK.
[2019-07-26] MEDS ORDERED: SODIUM BICARBONATE 8.4% SYRING 150 ML in DEXTROSE 5% 1,000 ML IV SCH (17:30)
--- NOTE | 2019-07-26 17:30 | NUR ---
PATIENT BACK TO UNIT FROM ENDOSCOPY. HAD A COLONOSCOPY WITH SOME INFLAMMATION FOUND PER PACU NURSE. ALERT AND VERBALLY RESPONSIVE. C/O BEING HUNGRY, KITCHEN CALLED AND DINNER SERVED. SITTING UP IN BED EATING, CALL LIGHT AT REACH. V/S 97.8-94-20-142/98 AND 95% ON RA.
[2019-07-26 17:33] LABS: WBC,FECAL (FECAL LACTOFERRIN) NEGATIVE (NEGATIVE)
[2019-07-26] MEDS: ASPIRIN 81 MG CHEW TAB PO SCH (17:52)
[2019-07-26] MEDS: METOPROLOL SUCCINATE 50 MG TAB XL PO SCH (20:27)
--- NOTE | 2019-07-26 20:44 | Progress Note ---
DATE: 07/26/2019 Cardiology Progress Note SUBJECTIVE: The patient denies chest pain or shortness of breath. She is scheduled for colonoscopy today. OBJECTIVE: VITAL SIGNS: Temperature 98 degrees, pulse 114, respiratory rate 21, blood pressure 164/70, and oxygen saturation 97%. GENERAL: Elderly woman, in no acute distress. Awake and alert. LUNGS: Clear to auscultation bilaterally. No wheezes or crackles. CARDIOVASCULAR: Tachycardic, but regular. No murmur. Normal S1 and S2. ABDOMEN: Soft and nontender. EXTREMITIES: No edema. Left arm in sling. CARDIAC MEDICATIONS: Metoprolol succinate 50 mg p.o. daily and aspirin 81 mg p.o. daily. LABORATORY DATA: WBC 9.69, hemoglobin 12.8, hematocrit 38.9, and platelets 282. Sodium 133, potassium 2.8, chloride 107, CO2 15, BUN 5, and creatinine 0.63. Telemetry was personally reviewed and interpreted, revealing atrial fibrillation as well as demand ventricular pacing. IMPRESSION: 1. Paroxysmal atrial fibrillation. 2. Transient complete heart block, status post permanent pacemaker. 3. Hypertension. 4. Diarrhea. RECOMMENDATIONS: Increase metoprolol as the patient's heart rate remains poorly controlled. Monitor on telemetry. Device check yesterday demonstrated normal function. Given her frailty and current diarrhea, she is not a candidate for anticoagulation at this time. When she has recovered from her current illness and GI workup is complete, we will revisit anticoagulation as an outpatient. Antibiotics per Infectious Disease. Replete electrolytes. Thank you for this consult. We will continue to follow. Lara Angel MD ABS/MODL /[id number]
[2019-07-27] VITALS (8 sets, daily range): BP systolic 97–149; BP diastolic 70–92
[2019-07-27] MEDS: TRAMADOL HCL 50 MG TAB PO PRN ×3 (03:39→20:34)
[2019-07-27] MEDS: METRONIDAZOLE 500MG/NS 100ML 100 ML IV SCH ×3 (05:41→23:08)
[2019-07-27 05:52] LABS: ALANINE AMINOTRANSFERASE 6 IU/L (0-55); ALBUMIN 2.3 g/dL (3.5-5.0); ALBUMIN/GLOBULIN RATIO 0.7 (0.8-2.0); ALKALINE PHOSPHATASE 73 IU/L (40-150); ANION GAP 9.1 mmol/L (8-16); BLOOD UREA NITROGEN < 5 mg/dL (7-26); BUN/CREATININE RATIO 7 (6-25); CALCIUM 8.6 mg/dL (8.4-10.2); CARBON DIOXIDE 22 mmol/L (22-29); CHLORIDE 103 mmol/L (98-107); CREATININE, SERUM 0.67 mg/dL (0.57-1.11); EST GLOMERULAR FILTRATION RATE > 60 ML/MIN (60-); GLUCOSE 130 mg/dL (74-118); MAGNESIUM 1.4 MG/DL (1.3-2.1); POTASSIUM 3.1 mmol/L (3.5-5.1); SODIUM 131 mmol/L (136-145)
--- NOTE | 2019-07-27 07:22 | NUR ---
PATIENT C/O COLD, WARM BLANKET PROVIDED. IN BED RESTING WITH NO S/S OF DISTRESS. CALL LIGHT AT REACH.
[2019-07-27] MEDS: ACETAMINOPHEN 325 MG TAB PO PRN (08:00)
[2019-07-27] MEDS: POTASSIUM CHLORIDE 10MEQ EA PO SCH (08:10)
[2019-07-27] MEDS: METOPROLOL SUCCINATE 50 MG TAB XL PO SCH ×2 (08:10→17:16)
[2019-07-27] MEDS: CHOLESTYRAMINE 4 GM PACKET PO SCH ×2 (09:26→17:18)
[2019-07-27] MEDS: ASPIRIN 81 MG CHEW TAB PO SCH (09:26)
--- NOTE | 2019-07-27 11:16 | NUR ---
SPOKE WITH SHAMAR AT FACILITY, SHE STATES SHE SPOKE WITH DR Aby FLOREZ LAST NIGHT AND HE WILL MOST LIKELY DISCHARGE ON TUESDAY. SHE STATES SHE WILL GET BACK TO ME WITH MOT AND WEEKEND STAFF WILL FOLLOW THROUGH ON THE REFERRAL.
--- NOTE | 2019-07-27 11:50 | NUR ---
PATIENT C/O PAIN AND WAS MEDICATED ORDERED. WILL CLOSELY MONITOR.
[2019-07-27] MEDS ORDERED: ONDANSETRON HCL 4 MG ORAL DISINTEGRATING TAB PO PRN (12:00)
--- NOTE | 2019-07-27 13:01 | Progress Note ---
DATE: 07/27/2019 Cardiology Progress Note SUBJECTIVE: The patient denies chest pain or shortness of breath. OBJECTIVE: VITAL SIGNS: Temperature 98.1 degrees, pulse 114, respiratory rate 18, blood pressure 149/92, and oxygen saturation 97% on room air. GENERAL: Awake, alert, elderly woman, in no acute distress. LUNGS: Clear to auscultation bilaterally. No wheeze or crackles. CARDIOVASCULAR: Normal rate. Regular rhythm. No murmur. Normal S1 and S2. ABDOMEN: Soft and nontender. EXTREMITIES: No edema. Left arm in a sling. CARDIAC MEDICATIONS: 1. Aspirin 81 mg p.o. daily. 2. Metoprolol succinate 100 mg p.o. daily. LABORATORY DATA: Sodium 131, potassium 3.1, chloride 103, CO2 of 22, BUN less than 5, and creatinine 0.67. Telemetry was personally reviewed and interpreted, revealing A-sensed V-paced rhythm. IMPRESSION: 1. Paroxysmal atrial fibrillation. 2. Transient complete heart block, status post permanent pacemaker. 3. Hypertension. 4. Diarrhea. RECOMMENDATIONS: Further increase metoprolol as blood pressure and heart rate are both elevated. Monitor on telemetry. 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 When she has recovered from her current illness and GI workup is complete, we will revisit anticoagulation as an outpatient. Antibiotics per Infectious Disease. Replete electrolytes. Thank you for this consult. We will continue to follow. Lara Angel MD ABS/MODL /[id number]
--- NOTE | 2019-07-27 15:38 | NUR ---
PATIENT EXERCISED IN ROOM WITH PHYSICAL THERAPY. IN BED WITH CALL LIGHT AT REACH.
--- NOTE | 2019-07-27 15:56 | NUR ---
SPOKE WITH MD REGARDING ABNORMAL LAB RESULT, NEW ORDER RECEIVED.
[2019-07-27] MEDS ORDERED: SODIUM CHLORIDE 0.9% 500ML 500 ML IV ONE (16:00)
[2019-07-27] MEDS ORDERED: POTASSIUM CHLORIDE 10MEQ/100ML 100 ML IV ONE ×5 (16:00→23:15)
--- NOTE | 2019-07-27 16:21 | NUR ---
CAN TRANSFER AFTER DR Aby FLOREZ DISCHARGES DETENTION FACILITY DISCHARGE INFORMATION PATIENT HAS BEEN ACCEPTED TO: NAME: [facility] ADDRESS:[address] ACCEPTING MD: Aby FLOREZ ROOM:19B NURSE CALL REPORT TO: [phone] IMM SIGNED AND OBTAINED (if applicable): IMM THE FOLLOWING DOCUMENTS MUST ACCOMPANY PATIENT FOR TRANSFER: COPIED CHART: PACKET
[2019-07-28] VITALS (8 sets, daily range): BP systolic 109–138; BP diastolic 66–95
[2019-07-28] MEDS: ACETAMINOPHEN 325 MG TAB PO PRN (01:20)
--- NOTE | 2019-07-28 03:45 | Operative Report ---
DATE OF PROCEDURE: 07/26/2019 SURGEON: Aldo Welsh MD PROCEDURE: Colonoscopy with biopsies. INDICATIONS FOR COLONOSCOPY: Chronic diarrhea. MEDICATIONS: The patient was done under MAC, please see anesthesiologist's note. PROCEDURE IN DETAIL: With the patient in left lateral decubitus position, a flexible fiberoptic Olympus colonoscope was inserted into the rectum with ease and advanced all the way to the cecum. Mucosa overlying the cecum appeared to be within normal limits. The ileocecal valve was intubated and the scope was advanced into the terminal ileum. Biopsies were obtained. The scope was then withdrawn back into the colon. It was then withdrawn slowly and the mucosa overlying the ascending, transverse, and proximal descending appeared grossly to be within normal limits. The mucosa overlying the distal descending, sigmoid, and rectum revealed some patchy mild inflammatory changes and random biopsies were obtained. The scope was then retroflexed into the distal rectum and small internal hemorrhoids were noted, none of which was actively bleeding. The scope was then straightened out, it was subsequently withdrawn after securing an adequate stool specimen, that was sent for the appropriate stool studies. The patient tolerated the procedure well. IMPRESSION: 1. Proctosigmoiditis, mild. 2. Internal hemorrhoids, none actively bleeding. PLAN: Follow up histology. Follow up stool studies. Aldo Welsh MD [facility] [place] /[id number] cc: Emmy Shirley MD
[2019-07-28] MEDS: METRONIDAZOLE 500MG/NS 100ML 100 ML IV SCH ×3 (05:27→22:00)
[2019-07-28] MEDS: TRAMADOL HCL 50 MG TAB PO PRN ×2 (05:27→21:20)
[2019-07-28 06:52] LABS: BASOPHILS # (AUTO) 0.1 (0.0-0.1); BASOPHILS % 0.5 % (0.0-1.0); EOSINOPHILS # (AUTO) 0.5 (0.0-0.4); EOSINOPHILS % 4.4 % (0.0-6.0); HEMATOCRIT 35.3 % (34.2-44.1); HEMOGLOBIN 11.7 g/dL (12.0-16.0); LYMPHOCYTES # (AUTO) 0.9 (1.0-3.2); LYMPHOCYTES % 7.7 % (18.0-39.1); MEAN CORPUSCULAR HEMOGLOBIN 31.5 pg (28-32); MEAN CORPUSCULAR HGB CONC 33.1 g/dL (31-35); MEAN CORPUSCULAR VOLUME 94.9 fL (81-99); MONOCYTES # (AUTO) 1.1 (0.2-0.8); MONOCYTES % 10.2 % (4.4-11.3); NEUTROPHILS # (AUTO) 8.4 (2.1-6.9); NEUTROPHILS % 76.5 % (38.7-80.0); PLATELET COUNT 293 x10e3/uL (140-360); RED BLOOD COUNT 3.72 x10e6/uL (3.6-5.1); RED CELL DISTRIBUTION WIDTH 13.6 % (11.7-14.4)
[2019-07-28 07:17] LABS: ANION GAP 8.4 mmol/L (8-16); BLOOD UREA NITROGEN < 5 mg/dL (7-26); CALCIUM 8.4 mg/dL (8.4-10.2); CARBON DIOXIDE 22 mmol/L (22-29); CHLORIDE 102 mmol/L (98-107); CREATININE, SERUM 0.57 mg/dL (0.57-1.11); EST GLOMERULAR FILTRATION RATE > 60 ML/MIN (60-); GLUCOSE 85 mg/dL (74-118); POTASSIUM 3.4 mmol/L (3.5-5.1); SODIUM 129 mmol/L (136-145)
[2019-07-28 07:18] LABS: BUN/CREATININE RATIO 9 (6-25)
[2019-07-28] MEDS: METOPROLOL SUCCINATE 50 MG TAB XL PO SCH ×2 (08:42→17:12)
[2019-07-28] MEDS: POTASSIUM CHLORIDE 10MEQ EA PO SCH (08:46)
[2019-07-28] MEDS: ASPIRIN 81 MG CHEW TAB PO SCH (08:46)
[2019-07-28] MEDS: CHOLESTYRAMINE 4 GM PACKET PO SCH ×2 (09:00→17:00)
--- NOTE | 2019-07-28 09:40 | NUR ---
Called Dr Aby Shirley for [place] [facility] [place] said [place] will be transferring there on Tuesday. patient stable, son at bed side
[2019-07-28 12:00] LABS: C DIFFICILE TOXIN A&B AMP PROB NEGATIVE (NEGATIVE)
--- NOTE | 2019-07-28 12:40 | NUR ---
PER DR FLOREZ PT WILL BE KEPT IN THE HOSPITAL OVER THE WEEKEND DUE TO ABNORMAL LABS. TRANSFER TO [facility] ON TUESDAY
--- NOTE | 2019-07-28 18:45 | NUR ---
patient resting in bed, alert with no distress
--- NOTE | 2019-07-28 18:48 | Progress Note ---
DATE: 07/28/2019 Cardiology Progress Note SUBJECTIVE: The patient denies chest pain or shortness of breath. OBJECTIVE: VITAL SIGNS: Temperature 97.5 degrees, pulse 110, respiratory rate 18, blood pressure 123/90, and oxygen saturation 95% on room air. GENERAL: Awake, alert, in no acute distress, elderly woman. LUNGS: Clear to auscultation bilaterally. No wheezes or crackles. CARDIOVASCULAR: Tachycardic but regular. No murmur. Normal S1, S2. ABDOMEN: Soft, nontender. EXTREMITIES: No edema. Small hematoma present at site of pacemaker, but otherwise dressing is intact. CARDIAC MEDICATIONS: Aspirin 81 mg p.o. daily, metoprolol succinate 100 mg p.o. b.i.d. LABORATORY DATA: WBC 11.03, hemoglobin 11.7, hematocrit 35.3, platelets 293. Sodium 129, potassium 3.4, chloride 102, CO2 of 22, BUN less than 5, and creatinine 0.57. TELEMETRY: Personally reviewed and interpreted, revealing ventricular paced rhythm. IMPRESSION: 1. Paroxysmal atrial fibrillation. 2. Transient complete heart block status post permanent pacemaker. 3. Hypertension. 4. Diarrhea. RECOMMENDATIONS: Continue current cardiac medications. Check BNP. Monitor patient closely on telemetry. Given frailty and diarrhea, she is not a candidate for anticoagulation at this time. When she recovers from her current illness and GI workup is complete, we will review the anticoagulation as an outpatient. Antibiotics per Infectious Disease. Replete electrolytes. Correction of hyponatremia per primary. Thank you for this consult. We will continue to follow. Lara Angel MD ABS/MODL /[id number]
--- NOTE | 2019-07-28 19:22 | NUR ---
Patient received lying in bed. AAO x 3. Patient had no complaints of pain. Respirations even and non-labored. Safety measures in place. Patient instructed to call for assistance when needed. Call light within reach.
--- NOTE | 2019-07-28 23:49 | Progress Note ---
DATE: SUBJECTIVE: Ms. Mckeon is doing better. There is no new complaint. Her diarrhea is improving. PHYSICAL EXAMINATION: GENERAL: She is currently alert, oriented, does not seem to be in acute distress. VITAL SIGNS: Stable, currently afebrile, HEENT: She is not icteric. NECK: Supple. CHEST: Clear. COR: S1 and S2. ABDOMEN: Soft. IMPRESSION: 1. Diarrhea, better. 2. Paroxysmal atrial fibrillation. 3. Transient heart block. 4. Debility. 5. Status post colonoscopy, showed proctosigmoiditis, which was mild. PLAN: Continue with Flagyl as ordered, can switch to oral 500 mg p.o. t.i.d. for 2 weeks. Await GI workup and biopsy. MD NIEVES Gamez/ORIANA /[id number]
[2019-07-29] VITALS (8 sets, daily range): BP systolic 96–130; BP diastolic 63–89
[2019-07-29] MEDS: TRAMADOL HCL 50 MG TAB PO PRN ×2 (05:04→22:40)
[2019-07-29 05:29] LABS: BASOPHILS # (AUTO) 0.1 (0.0-0.1); BASOPHILS % 0.7 % (0.0-1.0); EOSINOPHILS # (AUTO) 0.5 (0.0-0.4); EOSINOPHILS % 4.1 % (0.0-6.0); HEMATOCRIT 35.5 % (34.2-44.1); HEMOGLOBIN 11.8 g/dL (12.0-16.0); LYMPHOCYTES # (AUTO) 0.9 (1.0-3.2); MEAN CORPUSCULAR HEMOGLOBIN 31.6 pg (28-32); MEAN CORPUSCULAR HGB CONC 33.2 g/dL (31-35); MEAN CORPUSCULAR VOLUME 94.9 fL (81-99); MONOCYTES # (AUTO) 1.3 (0.2-0.8); MONOCYTES % 10.5 % (4.4-11.3); NEUTROPHILS # (AUTO) 9.4 (2.1-6.9); PLATELET COUNT 327 x10e3/uL (140-360); RED BLOOD COUNT 3.74 x10e6/uL (3.6-5.1); RED CELL DISTRIBUTION WIDTH 13.8 % (11.7-14.4)
[2019-07-29 05:49] LABS: ALANINE AMINOTRANSFERASE 7 IU/L (0-55); ALBUMIN 2.3 g/dL (3.5-5.0); ALBUMIN/GLOBULIN RATIO 0.6 (0.8-2.0); ALKALINE PHOSPHATASE 63 IU/L (40-150); ANION GAP 11.4 mmol/L (8-16); BLOOD UREA NITROGEN 5 mg/dL (7-26); BUN/CREATININE RATIO 8 (6-25); CALCIUM 8.6 mg/dL (8.4-10.2); CARBON DIOXIDE 22 mmol/L (22-29); CHLORIDE 100 mmol/L (98-107); CREATININE, SERUM 0.61 mg/dL (0.57-1.11); EST GLOMERULAR FILTRATION RATE > 60 ML/MIN (60-); GLUCOSE 75 mg/dL (74-118); POTASSIUM 3.4 mmol/L (3.5-5.1); SODIUM 130 mmol/L (136-145)
[2019-07-29] MEDS: METRONIDAZOLE 500MG/NS 100ML 100 ML IV SCH ×3 (06:00→22:18)
[2019-07-29 06:06] LABS: ANION GAP 11.5 mmol/L (8-16); BLOOD UREA NITROGEN 5 mg/dL (7-26); BUN/CREATININE RATIO 9 (6-25); CALCIUM 8.5 mg/dL (8.4-10.2); CARBON DIOXIDE 22 mmol/L (22-29); CHLORIDE 101 mmol/L (98-107); CREATININE, SERUM 0.58 mg/dL (0.57-1.11); EST GLOMERULAR FILTRATION RATE > 60 ML/MIN (60-); GLUCOSE 75 mg/dL (74-118); MAGNESIUM 1.4 MG/DL (1.3-2.1); POTASSIUM 3.5 mmol/L (3.5-5.1); SODIUM 131 mmol/L (136-145)
--- NOTE | 2019-07-29 07:30 | NUR ---
Patient a/ox3, c/o back pain and was just medicated by last shift, in bed, call light within reach, will monitor.
[2019-07-29] MEDS: POTASSIUM CHLORIDE 10MEQ EA PO SCH (08:24)
[2019-07-29] MEDS: CHOLESTYRAMINE 4 GM PACKET PO SCH ×2 (08:24→17:16)
[2019-07-29] MEDS: ASPIRIN 81 MG CHEW TAB PO SCH (08:24)
[2019-07-29] MEDS: METOPROLOL SUCCINATE 50 MG TAB XL PO SCH ×2 (08:25→17:16)
[2019-07-29] MEDS: FUROSEMIDE INJ 10 MG/ML 4 ML VIAL IV SCH (13:30)
--- NOTE | 2019-07-29 15:21 | Progress Note ---
DATE: 07/29/2019 Cardiology Progress Note SUBJECTIVE: The patient denies chest pain or shortness of breath. OBJECTIVE: VITAL SIGNS: Temperature 97 degrees, pulse 116, respiratory rate 18, blood pressure 96/63, and oxygen saturation 96% on room air. GENERAL: Elderly woman, in no acute distress, awake and alert. LUNGS: Clear to auscultation bilaterally. No wheezes or crackles. CARDIOVASCULAR: Normal rate. Regular rhythm. No murmur. Normal S1 and S2. ABDOMEN: Soft and nontender. EXTREMITIES: No edema. Left arm in sling. CARDIAC MEDICATIONS: 1. Metoprolol succinate 100 mg p.o. b.i.d. 2. Cholestyramine 4 mg p.o. b.i.d. 3. Aspirin 81 mg p.o. daily. LABORATORY DATA: WBC 12.19, hemoglobin 11.8, hematocrit 35.5, and platelets 327. Sodium 130, potassium 3.4, chloride 100, CO2 of 22, BUN 5, and creatinine 0.61. Telemetry was personally reviewed and interpreted, revealing ventricular paced rhythm. IMPRESSION: 1. Paroxysmal atrial fibrillation. 2. Transient complete heart block, status post permanent pacemaker. 3. Hypertension. 4. Diarrhea. RECOMMENDATIONS: Continue current cardiac medications. We will start gentle diuretics given her elevated BNP. Monitor the patient closely on telemetry. Given frailty and diarrhea, she is not a candidate for anticoagulation at this time. When she recovers from her current illness and GI workup is complete, we will rediscuss anticoagulation as an outpatient. Antibiotics per Infectious Disease. Correction of hyponatremia per primary. Thank you for this consult. We will continue to follow. Lara Angel MD ABS/MODL /[id number]
[2019-07-29] MEDS ORDERED: SODIUM CHLORIDE 0.9% 250ML 250 ML ONE ×2 (15:54→19:58)
--- NOTE | 2019-07-29 18:19 | NUR ---
Patient a/ox3, OOB and ambulated briefly, back to bed, tolerated abx, dinner, no N/V, no fever, call light within reach, will monitor.
[2019-07-30] VITALS (8 sets, daily range): BP systolic 117–151; BP diastolic 65–79
[2019-07-30 05:22] LABS: BASOPHILS # (AUTO) 0.1 (0.0-0.1); BASOPHILS % 0.8 % (0.0-1.0); EOSINOPHILS # (AUTO) 0.5 (0.0-0.4); EOSINOPHILS % 4.3 % (0.0-6.0); HEMATOCRIT 36.5 % (34.2-44.1); HEMOGLOBIN 12.3 g/dL (12.0-16.0); MEAN CORPUSCULAR HEMOGLOBIN 31.5 pg (28-32); MEAN CORPUSCULAR HGB CONC 33.7 g/dL (31-35); MEAN CORPUSCULAR VOLUME 93.6 fL (81-99); MONOCYTES # (AUTO) 1.2 (0.2-0.8); MONOCYTES % 10.1 % (4.4-11.3); NEUTROPHILS # (AUTO) 8.7 (2.1-6.9); NEUTROPHILS % 75.3 % (38.7-80.0); PLATELET COUNT 343 x10e3/uL (140-360); RED CELL DISTRIBUTION WIDTH 13.8 % (11.7-14.4)
[2019-07-30 05:43] LABS: ALANINE AMINOTRANSFERASE 7 IU/L (0-55); ALBUMIN 2.3 g/dL (3.5-5.0); ALBUMIN/GLOBULIN RATIO 0.6 (0.8-2.0); ALKALINE PHOSPHATASE 67 IU/L (40-150); ANION GAP 15.1 mmol/L (8-16); BLOOD UREA NITROGEN 6 mg/dL (7-26); BUN/CREATININE RATIO 10 (6-25); CALCIUM 8.5 mg/dL (8.4-10.2); CARBON DIOXIDE 21 mmol/L (22-29); CHLORIDE 98 mmol/L (98-107); CREATININE, SERUM 0.63 mg/dL (0.57-1.11); EST GLOMERULAR FILTRATION RATE > 60 ML/MIN (60-); GLUCOSE 81 mg/dL (74-118); POTASSIUM 3.1 mmol/L (3.5-5.1); SODIUM 131 mmol/L (136-145)
[2019-07-30] MEDS: METRONIDAZOLE 500MG/NS 100ML 100 ML IV SCH ×3 (06:00→21:21)
--- NOTE | 2019-07-30 07:18 | NUR ---
Bedside report and round completed with oncoming nurse. Patient in bed with call light within reach. No issues or concerns noted.
--- NOTE | 2019-07-30 07:22 | NUR ---
Assumed care. Pt awake alert and oriented to person. No distress noted. Denies pain. Call light in reach. Siderails up x2. Bed low. Instructed to use call light if assistance is needed.
--- NOTE | 2019-07-30 07:45 | NUR ---
Assumed care. Pt awake alert and oriented. No distress noted. Denies pain. Call light in reach. Siderails up x2. Bed low. Instructed to use call light if assistance is needed.
[2019-07-30] MEDS: CHOLESTYRAMINE 4 GM PACKET PO SCH ×2 (08:38→17:03)
[2019-07-30] MEDS: POTASSIUM CHLORIDE 10MEQ EA PO SCH (08:38)
[2019-07-30] MEDS: ASPIRIN 81 MG CHEW TAB PO SCH (08:38)
[2019-07-30] MEDS: FUROSEMIDE INJ 10 MG/ML 4 ML VIAL IV SCH (08:38)
[2019-07-30] MEDS: METOPROLOL SUCCINATE 50 MG TAB XL PO SCH ×2 (08:39→17:03)
[2019-07-30] MEDS ORDERED: POTASSIUM CHLORIDE 20MEQ/100ML 200 ML IV ONE ×2 (09:00→14:45)
[2019-07-30] MEDS: TRAMADOL HCL 50 MG TAB PO PRN ×3 (10:40→23:35)
[2019-07-30] MEDS: ACETAMINOPHEN 325 MG TAB PO PRN (12:40)
--- NOTE | 2019-07-30 14:26 | NUR ---
Nutrition Screen Note RD Recommendation for Physician: - Continue GI soft diet per MD. Plan of Care: RD following, monitoring for tolerance and adequacy. Ensure Compact BID. Nutrition reason for involvement: f/u Primary Diagnose(s): diarrhea, hypokalemia, hyponatremia PMH: HTN, arthritis, cholecystectomy Ht: 65 in Wt: 185.5 lb BMI: 30.9 kg/m2 IBW: [address] Assessment: 07/29 :Follow up: Pt was seen resting in bed. Her diet has advanced to a GI soft diet. She did report that her appetite has been low, recommended ONS for the pt, reported this to the nurse. Pt has been consuming 25-50% of her meals per FS. Pt was still somewhat confused at time of visit. LBM: 07/27. K-low, being replaced. Will continue to monitor. 07/24: Follow up: Pt was seen resting in bed. She appeared somewhat confused. The pt is currently on clear liquids d/t her prepping for colonoscopy per nurse. Per nurse she was on a diet 2 days ago and was consuming food. Pt denied N/V and stated she has not had BM recently, LBM: 07/23. Pt gloria to laboratory chemical assistant today. Pt needed emergent pacemaker yesterday which then caused diet to remain clear liquids. Will continue to monitor diet advancement. (07/17) 84 YOF admitted for diarrhea, seen today per MST screen. 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 Clear liquid diet initiated for lunch, tray at bedside and tolerance pending- assisted pt with set up and encouraged intake. Noted pt with 7 BMs today, continues with diarrhea/melena and C diff cultures pending. No wt loss noted, pt reports UBW of 170#. Skin intact. All questions and concerns addressed at time of visit. Chart reviewed. Labs and meds reviewed. Will continue to monitor. Current Diet: Gi soft Malnutrition Evaluation (07/18/19) The patient does not meet criteria for a specified degree of malnutrition at this time. Will re-evaluate at follow-up as appropriate. Energy intake: Mild- decreased po intake x 3 days Weight loss: None. UBW of 170# per pt. Fat loss: none, ample skinfold thickness Muscle loss: none, shoulder round Supporting Evidence: Fluid accumulation: none observed Functional Status: not assessed Diet Education Needs Assessment: Diet education needed, pt not appropriate at this time. Diet tolerance: tolerating diet Nutrition Care Level: Low Signed: Soha Stevens RD, IBIS Addendum: 07/30/19 at 1427 by Soha Stevens DIET Nutrition care level; mod, pt not meeting needs
[2019-07-30] MEDS ORDERED: POTASSIUM CHLORIDE 10MEQ EA PO NR (18:00)
--- NOTE | 2019-07-30 19:00 | NUR ---
Bedside report and rounds completed with off going nurse. Patient in bed with call light within reach. No issues or concerns noted. Will continue to monitor.
--- NOTE | 2019-07-30 19:46 | NUR ---
Pt resting in bed. No distress noted. Report given to PETRA Robert.
[2019-07-31 00:12] VITALS: BP 100/62
[2019-07-31] MEDS: ACETAMINOPHEN 325 MG TAB PO PRN (05:00)
[2019-07-31 05:20] VITALS: BP 109/70
[2019-07-31] MEDS: METRONIDAZOLE 500MG/NS 100ML 100 ML IV SCH (05:22)
[2019-07-31 05:53] LABS: ANION GAP 15.8 mmol/L (8-16); BLOOD UREA NITROGEN 6 mg/dL (7-26); BUN/CREATININE RATIO 9 (6-25); CALCIUM 8.3 mg/dL (8.4-10.2); CARBON DIOXIDE 18 mmol/L (22-29); CHLORIDE 99 mmol/L (98-107); CREATININE, SERUM 0.64 mg/dL (0.57-1.11); EST GLOMERULAR FILTRATION RATE > 60 ML/MIN (60-); GLUCOSE 86 mg/dL (74-118); POTASSIUM 3.8 mmol/L (3.5-5.1); SODIUM 129 mmol/L (136-145)
--- NOTE | 2019-07-31 07:12 | NUR ---
Bedside report and round completed with oncoming nurse. Patient in bed with call light within reach. No issues or concerns noted.
--- NOTE | 2019-07-31 07:13 | NUR ---
Assumed care. Resting in bed. Acyanotic. No distress noted. Call light in reach.
[2019-07-31 08:06] VITALS: BP 118/82
[2019-07-31 08:43] VITALS: BP 118/82
[2019-07-31] MEDS: TRAMADOL HCL 50 MG TAB PO PRN (08:45)
[2019-07-31] MEDS ORDERED: CHOLESTYRAMINE 4 GM PACKET PO SCH (09:00)
[2019-07-31] MEDS: POTASSIUM CHLORIDE 10MEQ EA PO SCH (09:07)
[2019-07-31] MEDS: ASPIRIN 81 MG CHEW TAB PO SCH (09:07)
[2019-07-31] MEDS: METOPROLOL SUCCINATE 50 MG TAB XL PO SCH (09:08)
--- NOTE | 2019-07-31 10:09 | NUR ---
REPORT CALLED TO ARA WEINER AT [facility] IN [place] FOR PATIENT TRANSFERING TO BED 35
--- NOTE | 2019-07-31 11:00 | NUR ---
IMM letter delivered and explained to pt. She verbalized understanding. Signed copy placed in chart. Copy to pt's transition of care folder.
[2019-07-31 12:17] VITALS: BP 188/78
== END 2019-07-31 11:26 | DRG 982 ==
LOC: ER 06:31 → ERHOLD 12:02 → MED/SURG2 15:29
PROVIDERS: ADMIT Internal Medicine; ATTEND Internal Medicine
PROC: 0JH606Z Insertion of Pacemaker, Dual Chamber into Chest Subcutaneous Tissue and Fascia, Open Approach (ICD-10-PCS; principal; 2019-07-24)
PROC: 02HK3JZ Insertion of Pacemaker Lead into Right Ventricle, Percutaneous Approach (ICD-10-PCS; 2019-07-24)
PROC: 02H63JZ Insertion of Pacemaker Lead into Right Atrium, Percutaneous Approach (ICD-10-PCS; 2019-07-24)
PROC: 0DBM8ZX Excision of Descending Colon, Via Natural or Artificial Opening Endoscopic, Diagnostic (ICD-10-PCS; 2019-07-26)
PROC: 0DBN8ZX Excision of Sigmoid Colon, Via Natural or Artificial Opening Endoscopic, Diagnostic (ICD-10-PCS; 2019-07-26)
PROC: 0DBP8ZX Excision of Rectum, Via Natural or Artificial Opening Endoscopic, Diagnostic (ICD-10-PCS; 2019-07-26)
PROC: 0DBB8ZX Excision of Ileum, Via Natural or Artificial Opening Endoscopic, Diagnostic (ICD-10-PCS; 2019-07-26)
DX: A04.71 Enterocolitis due to Clostridium difficile, recurrent (principal); E87.1 Hypo-osmolality and hyponatremia; E87.2 Acidosis; I44.2 Atrioventricular block, complete; S13.4XXA Sprain of ligaments of cervical spine, initial encounter; E86.0 Dehydration; E87.6 Hypokalemia; G89.4 Chronic pain syndrome; Z96.651 Presence of right artificial knee joint; Z82.49 Family history of ischemic heart disease and other diseases of the circulatory system; Z87.440 Personal history of urinary (tract) infections; I48.0 Paroxysmal atrial fibrillation; I45.5 Other specified heart block; K63.89 Other specified diseases of intestine; K64.8 Other hemorrhoids
CPT/HCPCS: 33208; 36415; 45378; 70450; 71045; 72125; 74177; 80048; 80053; 80320; 81001; 82550; 82553; 82948; 83605; 83630; 83690; 83735; 83880; 83993; 84100; 84132; 84484; 85025; 85610; 87040; 87045; 87086; 87177; 87328; 87493; 88305; 93005; 93041; 93306; 96361; 97139; 99152; 99153; 99285; J0696; J1170; J1940; J1956; J2001; J2250; J2405; J3010; J3370; J3480; J7030; J7040; J7050; J7070; Q9967

== ENCOUNTER 2019-09-02 01:20 | Inpatient (IN) | payer MEDICARE, OTHER ==
[~2019-09-02] VITALS: Ht 165.1 cm; Wt 77.1 kg
[2019-09-02] MEDS ORDERED: CEFEPIME 1GM/NS 0.9% 50 ML 50 ML IV STA (02:15)
[2019-09-02 02:28] LABS: BASOPHILS # (AUTO) 0.1 (0.0-0.1); BASOPHILS % 0.7 % (0.0-1.0); EOSINOPHILS % 0.2 % (0.0-6.0); HEMATOCRIT 39.1 % (34.2-44.1); HEMOGLOBIN 12.5 g/dL (12.0-16.0); LYMPHOCYTES # (AUTO) 0.9 (1.0-3.2); LYMPHOCYTES % 8.9 % (18.0-39.1); MEAN CORPUSCULAR HEMOGLOBIN 30.4 pg (28-32); MEAN CORPUSCULAR VOLUME 95.1 fL (81-99); MONOCYTES # (AUTO) 0.3 (0.2-0.8); MONOCYTES % 3.1 % (4.4-11.3); NEUTROPHILS # (AUTO) 7.8 (2.1-6.9); NEUTROPHILS % 81.8 % (38.7-80.0); PLATELET COUNT 286 x10e3/uL (140-360); RED BLOOD COUNT 4.11 x10e6/uL (3.6-5.1)
[2019-09-02 02:43] LABS: ALBUMIN 2.1 g/dL (3.5-5.0); ALBUMIN/GLOBULIN RATIO 0.4 (0.8-2.0); ANION GAP 22.2 mmol/L (8-16); CALCIUM 9.4 mg/dL (8.4-10.2); CREATININE, SERUM 1.96 mg/dL (0.57-1.11)
[2019-09-02 02:44] LABS: CLARITY,URINE TURBID (CLEAR); COLOR,URINE YELLOW (YELLOW)
[2019-09-02 02:45] LABS: BILIRUBIN,URINE NEGATIVE (NEGATIVE); KETONES,URINE NEGATIVE (NEGATIVE); LEUKOCYTE ESTERASE ,URINE LARGE (NEGATIVE); NITRITE,URINE NEGATIVE (NEGATIVE); PROTEIN,URINE DIPSTICK 1+ (NEGATIVE); URINE UROBILINOGEN 0.2 mg/dL (0.2 - 1)
[2019-09-02 02:46] LABS: BACTERIA,URINE MANY /HPF; EPITHELIAL CELLS,URINE MANY /LPF; RBC,URINE >50 /HPF (0-5); WBC,URINE (MAN) >50 /HPF (0-5)
[2019-09-02 02:49] LABS: POTASSIUM 7.2 mmol/L (3.5-5.1)
[2019-09-02] MEDS ORDERED: SODIUM CHLORIDE 0.9% 1000ML 1,000 ML IV STA ×3 (02:51)
[2019-09-02] MEDS ORDERED: VANCOMYCIN 1GM/NS 250 ML 250 ML IV STA (02:55)
[2019-09-02] MEDS ORDERED: CEFEPIME 1GM/NS 0.9% 50 ML 50 ML IV SCH (03:00)
[2019-09-02] MEDS ORDERED: CALCIUM GLUCONATE 10% INJ 0.465 MEQ/ML VIAL ONE ×2 (03:14→07:17)
[2019-09-02] MEDS ORDERED: CALCIUM GLUCONATE 10% INJ 4.65 MEQ in SODIUM CHLORIDE 0.9% 50ML 50 ML IV ONE ×2 (03:15→07:15)
[2019-09-02] MEDS ORDERED: SODIUM CHLORIDE 0.9% 50ML 50 ML ONE (03:18)
[2019-09-02 03:23] LABS: ALBUMIN/GLOBULIN RATIO 0.4 (0.8-2.0); ANION GAP 20.6 mmol/L (8-16); CALCIUM 9.3 mg/dL (8.4-10.2); CREATININE, SERUM 1.98 mg/dL (0.57-1.11)
[2019-09-02 03:28] LABS: POTASSIUM 6.6 mmol/L (3.5-5.1)
[2019-09-02] MEDS ORDERED: SODIUM BICARBONATE 8.4% INJ 50 ML SYR IV STA (03:29)
[2019-09-02] MEDS ORDERED: DEXTROSE 50% SYRINGE 50 ML IV STA (03:29)
[2019-09-02] MEDS ORDERED: INSULIN REGULAR, HUMAN 100 UNIT/1 ML 3ML VIAL SQ ONE (03:30)
[2019-09-02] MEDS ORDERED: DEXTROSE 50% SYRINGE 50 ML IV ONE (03:43)
--- NOTE | 2019-09-02 03:51 | Diagnostic Imaging Report ---
EXAMINATION: CHEST SINGLE (PORTABLE) INDICATION: Altered Mental status COMPARISON: Chest x-ray 07/18/2019 FINDINGS: TUBES and LINES: Left chest wall cardiac device with leads in the right atrium and right ventricle. LUNGS: Normal lung volumes. Lungs are clear. No consolidations. PLEURA: No pleural effusion or pneumothorax. HEART AND MEDIASTINUM: The cardiomediastinal silhouette is unremarkable. BONES AND SOFT TISSUES: Soft tissues are unremarkable. Degenerative changes in the spine and shoulders. Kyphoplasty material within the lower thoracic vertebral body. Compression fractures in the lower thoracic spine. UPPER ABDOMEN: No free air under the diaphragm. Cholecystectomy clips in the right upper quadrant. IMPRESSION: Mild cardiomegaly. Signed by: Andreas Rizvi DO on 09/02/2019 3:48 AM
[2019-09-02] MEDS ORDERED: INSULIN REGULAR, HUMAN 100 UNIT/1 ML 3ML VIAL IV ONE (04:15)
[2019-09-02 05:48] LABS: ANION GAP 11.4 mmol/L (8-16); CREATININE, SERUM 1.1 mg/dL (0.57-1.11); POTASSIUM 3.4 mmol/L (3.5-5.1)
--- NOTE | 2019-09-02 06:59 | NUR ---
Shima GARCIA SPEAKING WITH PATIENTS SON REGARDING CONSENT FOR CENTRAL LINE PLACEMENT. OBTAINED PHONE CONSENT
--- NOTE | 2019-09-02 07:03 | NUR ---
DR. BROWN ATTEMPTING CENTRAL LINE PLACE. WHEN SHE SAT PATIENT UP SHE BEGAN HAVING COFFEE GROUND EMESIS.
--- NOTE | 2019-09-02 07:04 | NUR ---
DR. BROWN SPEAKING WITH PATIENTS SON VIA PHONE REGARDING CODE STATUS. PATIENT SWITCHED FROM ICU TO REGULAR UNIT
--- NOTE | 2019-09-02 07:23 | NUR ---
PATIENT NOW NOT RESPONDING TO NAME OR FOLLOWING COMMANDS. DR. GLEZ AWARE AND IS AT BEDSIDE .
--- NOTE | 2019-09-02 07:26 | NUR ---
DR. GLEZ SPEAKING WITH CASE MANAGEMENT
--- NOTE | 2019-09-02 07:37 | NUR ---
MET WITH ER PHYSICIAN, DR. GLEZ. HE EXPLAINED PT STATUS AND POOR PROGNOSIS. PT NOT ABLE TO ANSWER QUESTIONS OR MAKE DECISIONS. DR. GLEZ HAS SPOKEN W/ HER SON, ALFREDO CHAIDEZ [phone], AND HE IS EXPECTING MY CALL. CM CALLED ALFREDO CHAIDEZ REGARDING ORDER FOR HOSPICE. HE AND THE FAMILY ARE DISCUSSING PT STATUS AT THIS TIME, AND WILL CALL CM BACK WHEN THEY ARE READY TO MAKE A DECISION REGARDING HOSPICE.
--- NOTE | 2019-09-02 07:59 | NUR ---
DR. GLEZ SPEAKING WITH PATIENTS SON
--- NOTE | 2019-09-02 07:59 | NUR ---
PATIENT , FAMILY AWARE.
--- NOTE | 2019-09-02 08:06 | NUR ---
coroners office called at this time.
--- NOTE | 2019-09-02 08:06 | NUR ---
[facility] NOTIFIED, PATIENT IS NOT A CANDIDATE. SPOKE WITH PURNIMA MORE. CASE# [id number]
--- NOTE | 2019-09-02 08:07 | NUR ---
spoke to Arlene at the coroners office, entered information for assessment. Arlene advised that they would enter the information to triage and an investigaror would return our call.
--- NOTE | 2019-09-02 10:01 | NUR ---
RECALLED CORONOR OFFICE. THEY ARE AWARE WE DO NOT HAVE REFRIGERATION AND THEY WILL GET BACK WITH US SOON THEY CAN. ERWIN WHITEFAST FOOD ATTENDANT AWARE
--- NOTE | 2019-09-02 10:30 | NUR ---
PAYROLL SUPERVISOR RELEASED. HOME CALLED
--- NOTE | 2019-09-02 10:32 | NUR ---
medical malpractice paralegal released body to home,
--- NOTE | 2019-09-02 11:55 | NUR ---
CLIENT BODY PICKED UP BY HOME TRANSPORTER.
--- NOTE | 2019-09-02 19:40 | Discharge Summary ---
This is a discharge and summary, which will also be inclusive of what is possible of H and P. PRIMARY CARE PHYSICIAN: Emmy Shirley MD HISTORY: Ms. Mckeon was an 84-year-old female with past medical history of hypertension, chronic pain syndrome, chronic arthritis, chronic back pain, osteoarthritis, chronic diarrhea. 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 FAMILY HISTORY: Unknown. SOCIAL HISTORY: The patient is and lives with her son per the most recent history and physical dictated by Dr. Aby Shirley on 07/17/2019. Denied smoking, alcohol or illicit drug use. ALLERGIES: NO KNOWN DRUG ALLERGIES. The patient was admitted with urinary tract infection and septic shock from urosepsis. She was afebrile and appears she came in shortly after midnight, tachycardic with heart rate 103, respiratory rate 40. Around 7 o'clock in the morning, Dr. Hou attempted central line placement and when the patient was set up, she began having coffee-grounds emesis. Shortly thereafter, Dr. Hou spoke with the patient's son regarding her code status and the patient was switched from ICU to regular unit per the documentation. 7:23 a.m. note per PETRA Diop, indicated this patient was not responding to name or following any simple commands. Dr. Geiger, emergency room physician was aware and at the bedside. Dr. Geiger met with Trini with Case Management and explained the status and poor prognosis. The patient was unable to answer any questions or make any decisions and Dr. Geiger spoke with her son, Thang Mckeon. Trini spoke with Thang regarding an order for hospice and the patient's son indicated that they would call Trini back regarding a decision about hospice. Dr. Geiger spoke with the patient's son around 7:59 in the morning, which was the time of . [facility] was notified. The patient was not a candidate for [facility]. bench examiner released the body around 10:30 in the morning and home picked up the body around 11:55 in the morning. On admission, potassium level was 7.2, BUN 58, and creatinine 1.96, estimated GFR 24. Lactic acid level 6.1. Potassium level improved to 3.4, BUN 41, creatinine 1.1, estimated GFR 47, calcium 6.0. Lactic acid level remained 6.1. Chest x-ray showed mild cardiomegaly. Dictated by Raul Gaytan, BUNDLE COLLECTOR Ruddy Hawk MD HWP/MODL /[id number]
== END 2019-09-02 07:59 | disposition expired | DRG 871 ==
LOC: ER 01:20 → ERHOLD 03:41
PROVIDERS: ADMIT Internal Medicine; ATTEND Internal Medicine
DX: A41.9 Sepsis, unspecified organism (principal); R65.21 Severe sepsis with septic shock; J96.00 Acute respiratory failure, unspecified whether with hypoxia or hypercapnia; J15.9 Unspecified bacterial pneumonia; N17.9 Acute kidney failure, unspecified; N39.0 Urinary tract infection, site not specified; E87.5 Hyperkalemia; I10 Essential (primary) hypertension; Z96.651 Presence of right artificial knee joint; Z90.49 Acquired absence of other specified parts of digestive tract; I48.0 Paroxysmal atrial fibrillation; Z95.0 Presence of cardiac pacemaker
CPT/HCPCS: 36415; 51700; 71045; 80048; 80053; 81001; 82550; 82553; 83605; 84484; 85025; 87040; 87086; 87186; 93005; 99284; J0610; J0692; J1817; J3370; J7030; J7799